=== PATIENT | female | born 1935 | race Caucasian/White ===

== ENCOUNTER → 2017-01-31 | Outpatient (CLI) | payer OTHER ==
[2013-09-10 12:26] VITALS: BP 200/117
[2017-01-31 10:55] LABS: CREATININE 0.94 mg/dL (0.55-1.02)
--- NOTE | 2017-01-31 14:12 | CT ---
HISTORY: Thoracic back pain Study: CT thoracic spine without contrast Comparison: None Technique: Axial non contrast images with coronal and sagittal reformats. Dose reduction procedures were use with MA/kv adjusted for body size. Findings: The bones are osteopenic. Mild levoscoliosis is present. The alignment is otherwise normal. The vert ebral bodies are of average height the disc spaces are preserved . The pedicles, spinous processes, and posterior elements are intact as are the visualized posterior ribs. There is no evidence for fra cture or dislocation. The joints are within normal limits. IMPRESSION: Osteopenia Mild levoscoliosis Reported By:
--- NOTE | 2017-02-01 14:18 | MRI ---
HISTORY: Thoracic spine pain and stiffness Study: MRI thoracic spine with and without contrast Comparison: 09/19/2016 Technique: Multiplanar multi-sequence MRI of the thoracic spine was obtained with standard [facility] protocol. Findings: There is increased kyphosis of the thoracic spine. No listhesis. Scattered hemangiomas are again see n throughout the mid thoracic vertebral bodies without evidence of abnormal enhancement or destructi ve soft tissue mass. Left renal cyst is suspected. The surrounding paraspinal soft tissues are othe rwise unremarkable. There is minimal endplate concavity in the upper thoracic spine that appears ch ronic in nature. No evidence of acute compression fracture. Multilevel disc desiccation is present. No spinal or foraminal stenosis identified. IMPRESSION: 1. Overall stable thoracic spine MRI with chronic degenerate findings as described. Reported By:
== END | disposition home or self-care (01) | DRG 552 ==
LOC: RAD 10:18
PROVIDERS: ATTEND Neurological Surgery
DX: M54.6 Pain in thoracic spine (principal); N28.89 Other specified disorders of kidney and ureter; M85.88 Other specified disorders of bone density and structure, other site; M41.84 Other forms of scoliosis, thoracic region
CPT/HCPCS: 36415; 72128; 72157; 82565; 84520

== ENCOUNTER → 2017-06-27 | Outpatient (CLI) | payer OTHER ==
[2013-09-10 12:26] VITALS: BP 200/117
--- NOTE | 2017-06-27 09:59 | MRI ---
MRI SPINE THORACIC WITHOUT CONTRAST CLINICAL HISTORY: 81-year-old female with chronic thoracic pain. COMPARISON: MR thoracic spine 01/31/2017. TECHNIQUE: Multiplanar, multisequence MRI images of the thoracic spine were obtained prior to and fo llowing the uneventful intravenous administration of contrast. FINDINGS: Mild exaggeration of the thoracic kyphosis as imaged. Alignment is maintained. Vertebral body and int ervertebral disc space height are normal. Stable probable hemangiomas T2, T6 and T10 with the remaini ng marrow signal unremarkable. Disc signal is preserved. Cord signal is normal. There is no evidence of significant neural foraminal stenosis or canal compromise. Stable left renal cyst. IMPRESSION: 1. Mild multilevel degenerative change without central canal or neural foraminal stenosis. 2. Stable left renal cyst. Reported By:
== END | disposition home or self-care (01) | DRG 552 ==
LOC: RAD 08:17
PROVIDERS: ATTEND Neurological Surgery
DX: M54.6 Pain in thoracic spine (principal); M48.04 Spinal stenosis, thoracic region; N28.1 Cyst of kidney, acquired
CPT/HCPCS: 72146

== ENCOUNTER 2018-11-26 18:41 | Observation (INO) ==
--- NOTE | 2018-11-26 19:06 | CT ---
CT HEAD WITHOUT CONTRAST CLINICAL HISTORY: 82-year-old female with possible stroke. COMPARISON: CT head 08/13/2018. TECHNIQUE: Multiple, non-contrasted axial CT images were obtained from the skull base to the cranial vertex. Coronal and sagittal reformats were performed. FINDINGS: There are no abnormal intra- or extra-axial fluid collections, midline shift, or mass effect. Zambrano-white differentiation is normal. Partially empty sella. Global cortical involutional changes are present that are advanced for the patient's stated age. The ventricular system is enlarged but commensurate with the degree of sulcal prominence. Chronic lacunar infarctions bilateral basal ganglia. Severe periventricular and supraventricular white matter hypodensity is present that is nonspecific in appearance, but most likely to represent microvascular ischemic changes. Atherosclerotic vascular calcification is present within the carotid siphons and distal vertebral arteries. Bilateral aphakia. The imaged paranasal sinuses, mastoid air cells, and tympanic spaces are clear. IMPRESSION: 1. No definite evidence of an acute intracranial process. If clinical concern persists for acute stroke and it would alter patient management, consider MRI/MRA brain. 2. Chronic lacunar infarctions bilateral basal ganglia. 3. Severe microvascular white matter ischemic changes, with associated volume loss. Reported By:
[2018-11-26 19:29] LABS: BILIRUBIN,URINE NEGATIVE (NEGATIVE); BLOOD/HEMOGLOBIN,URINE 2+ (NEGATIVE); GLUCOSE, URINE NEGATIVE (NEGATIVE); KETONES,URINE 1+ (NEGATIVE); LEUKOCYTE ESTERASE ,URINE 1+ (NEGATIVE); NITRITES,URINE NEGATIVE (NEGATIVE); PROTEIN,URINE 2+ (NEGATIVE); UROBILINOGEN,URINE NORMAL (NORMAL)
[2018-11-26 19:50] LABS: APPEARANCE,URINE HAZY (CLEAR); COLOR,URINE YELLOW (YELLOW)
[2018-11-26 19:52] LABS: AMORPHOUS SEDIMENT,UR 1+ /HPF (NEGATIVE); BACTERIA,URINE TRACE /HPF (NEGATIVE); SQUAMOUS EPITHELIAL CELL,UR RARE /HPF (NEGATIVE)
[2018-11-26 20:19] LABS: BASOPHILS % (AUTO) 0.4 % (0.2-1.0); EOSINOPHILS # (AUTO) 0.1 x10^3/uL (0.0-0.2); EOSINOPHILS % (AUTO) 0.9 % (0.9-2.9); HEMATOCRIT 38.4 % (36.0-47.0); HEMOGLOBIN 12.6 g/dL (12.0-16.0); LYMPHOCYTES # (AUTO) 1.5 X10^3/uL (1.3-2.9); LYMPHOCYTES % (AUTO) 16.1 % (21.0-51.0); MEAN CORPUSCULAR HGB CONC 32.8 g/dL (33.0-35.0); MEAN CORPUSCULAR VOLUME 85.5 fL (80.0-100.0); MEAN PLATELET VOLUME 7.7 fL (7.4-11.0); MONOCYTES # (AUTO) 0.7 x10^3/uL (0.3-0.8); MONOCYTES % (AUTO) 7.3 % (0.0-13.0); NEUTROPHILS # (AUTO) 6.9 x10^3/uL (2.2-4.8); NEUTROPHILS % (AUTO) 75.3 % (42.0-75.0); PLATELET COUNT 245 X10^3/uL (150.0-450.0); RED BLOOD COUNT 4.49 X10^6/uL (3.5-5.4); RED CELL DISTRIBUTION WIDTH 13.9 % (11.6-16.5); WHITE BLOOD COUNT 9.2 X10^3/uL (3.6-10.0)
[2018-11-26 20:34] LABS: BLOOD UREA NITROGEN 21 mg/dL (7-18); CARBON DIOXIDE 31.7 mmol/L (21-32); CHLORIDE 101 mmol/L (98-107); COR NA(FOR HYPERGLY) 139 mmol/L (136-145); CREATININE 0.97 mg/dL (0.55-1.02); SODIUM 138 mmol/L (136-145); TROPONIN I < 0.02 ng/mL (0-1.5); eGFR NON BLACK RACES 58 (>60)
[2018-11-26 20:37] LABS: LACTIC ACID 0.5 mmol/L (0.4-2.0)
[2018-11-26 20:39] LABS: ALANINE AMINOTRANSFERASE 18 Units/L (12-78); ALBUMIN 3.5 g/dL (3.4-5.0); ALKALINE PHOSPHATASE 68 Units/L (46-116); ASPARTATE AMINO TRANSFERASE 16 Units/L (15-37); CKMB % 2.5 % (<4); CREATINE KINASE 40 Units/L (26-192); CREATINE KINASE MB < 1.0 ng/mL (0-4.0); TOTAL PROTEIN 6.9 g/dL (6.4-8.2)
--- NOTE | 2018-11-27 00:08 | DR.WEAKNES ---
HPI Time Seen Time Seen by Provider: 11/26/18 19:48 Primary Care Physician Primary Care Physician: denisa Complaints Chief Complaint:: pt was found unresponsive by her daughter. upon ems's arrival pt was unresponsive except for painful stimuli pupils unequal pt has hx of falling multiple times over the last few weeks. ems started using the ambu bag beause pt's % in the low 50's.unknown when patient last seen normal. Source History Provided: EMS Mode of Arrival Mode of Arrival: EMS Timing Onset of Chief Complaint: 11/26/18 PMH PMH Past Medical History: Yes Past Medical History: Hypertension and Hypothyroidism Past Medical History Comment: legally blind Past Surgical History: Yes Surgical History: Hysterectomy Family History History of Family Medical Conditions: No Family Medical History: Cancer, Heart Failure and Hypertension Social History Does patient currently use any type of tobacco product: No Have you used tobacco products in the last 12 months: No Does any household member use tobacco: No Alcohol Use: None Do you use any recreational Drugs:: No Lives With: Family Lives Where: Home infectious screening In the last 2 months have you had wt loss of >10#?: NO Have you had fever, night sweats or hemotysis?: No Have you traveled outside the country in the last 6 months?: No Isolation: Standard PE Vital Signs Vitals: Temperature 98.4 F Pulse Rate 95 Respiratory Rate 18 Blood Pressure [Right Arm] 118/58 Blood Pressure 147/65 O2 Sat by Pulse Oximetry 98 ROR Labs Reviewed Result Diagrams: 11/26/18 20:06 11/26/18 20:06 Laboratory: WBC 9.2 X10^3/uL (3.6-10.0) 11/26/18 20:06 RBC 4.49 X10^6/uL (3.5-5.4) 11/26/18 20:06 Hgb 12.6 g/dL (12.0-16.0) 11/26/18 20:06 Hct 38.4 % (36.0-47.0) 11/26/18 20:06 MCV 85.5 fL (80.0-100.0) 11/26/18 20:06 MCH 28.0 pg (27.0-34.0) 11/26/18 20:06 MCHC 32.8 g/dL (33.0-35.0) L 11/26/18 20:06 RDW 13.9 % (11.6-16.5) 11/26/18 20:06 Plt Count 245 X10^3/uL (150.0-450.0) 11/26/18 20:06 MPV 7.7 fL (7.4-11.0) 11/26/18 20:06 Neut % (Auto) 75.3 % (42.0-75.0) H 11/26/18 20:06 Lymph % (Auto) 16.1 % (21.0-51.0) L 11/26/18 20:06 [place] % (Auto) 7.3 % (0.0-13.0) 11/26/18 20:06 Eos % (Auto) 0.9 % (0.9-2.9) 11/26/18 20:06 Baso % (Auto) 0.4 % (0.2-1.0) 11/26/18 20:06 Neut # (Auto) 6.9 x10^3/uL (2.2-4.8) H 11/26/18 20:06 Lymph # (Auto) 1.5 X10^3/uL (1.3-2.9) 11/26/18 20:06 [place] # (Auto) 0.7 x10^3/uL (0.3-0.8) 11/26/18 20:06 Eos # (Auto) 0.1 x10^3/uL (0.0-0.2) 11/26/18 20:06 Baso # (Auto) 0.0 X10^3/uL (0.0-0.1) 11/26/18 20:06 Absolute Nucleated RBC 0.1 /100WBC 11/26/18 20:06 Sodium 138 mmol/L (136-145) 11/26/18 20:06 Corrected Sodium 139 mmol/L (136-145) 11/26/18 20:06 Potassium 3.7 mmol/L (3.5-5.1) 11/26/18 20:06 Chloride 101 mmol/L (98-107) 11/26/18 20:06 Carbon Dioxide 31.7 mmol/L (21-32) 11/26/18 20:06 BUN 21 mg/dL (7-18) H 11/26/18 20:06 Creatinine 0.97 mg/dL (0.55-1.02) 11/26/18 20:06 Est GFR (MDRD) Af Amer > 60 (>60) 11/26/18 20:06 Est GFR (MDRD) Non-Af 58 (>60) L 11/26/18 20:06 Glucose 135 mg/dL (65-99) H 11/26/18 20:06 Lactic Acid 0.5 mmol/L (0.4-2.0) 11/26/18 20:06 Calcium 9.0 mg/dL (8.5-10.1) 11/26/18 20:06 Corrected Calcium TNP 11/26/18 20:06 Total Bilirubin 0.30 mg/dL (0.2-1.0) 11/26/18 20:06 AST 16 Units/L (15-37) 11/26/18 20:06 ALT 18 Units/L (12-78) 11/26/18 20:06 Alkaline Phosphatase 68 Units/L (46-116) 11/26/18 20:06 Creatine Kinase 40 Units/L (26-192) 11/26/18 20:06 CK-MB (CK-2) < 1.0 ng/mL (0-4.0) 11/26/18 20:06 CK/CKMB % Calc 2.5 % (<4) 11/26/18 20:06 Troponin I < 0.02 ng/mL (0-1.5) 11/26/18 20:06 C-Reactive Protein 2.20 mg/L (0-3.0) 11/26/18 20:06 Total Protein 6.9 g/dL (6.4-8.2) 11/26/18 20:06 Albumin 3.5 g/dL (3.4-5.0) 11/26/18 20:06 Globulin 3.4 g/dL (2.5-4.5) 11/26/18 20:06 Albumin/Globulin Ratio 1.0 Ratio (1.1-2.1) L 11/26/18 20:06 Specimen Type Catherized urine 11/26/18 19:19 Urine Color Yellow (YELLOW) 11/26/18 19:19 Urine Appearance Hazy (CLEAR) 11/26/18 19: Urine pH 5.0 (5.0 - 8.0) 11/26/18 19:19 Ur Specific [place] 1.025 (1.000-1.030) 11/26/18 19:19 Urine Protein 2+ (NEGATIVE) 11/26/18 19:19 Urine Glucose (UA) Negative (NEGATIVE) 11/26/18 19:19 Urine Ketones 1+ (NEGATIVE) 11/26/18 19:19 Urine Occult Blood 2+ (NEGATIVE) 11/26/18 19:19 Urine Nitrite Negative (NEGATIVE) 11/26/18 19:19 Urine Bilirubin Negative (NEGATIVE) 11/26/18 19:19 Urine Urobilinogen Normal (NORMAL) 11/26/18 19:19 Ur Leukocyte Esterase 1+ (NEGATIVE) 11/26/18 19:19 Urine RBC 3-5 /HPF (NONE SEEN) 11/26/18 19:19 Urine WBC 0-2 /HPF (NONE SEEN) 11/26/18 19:19 Ur Squamous Epith Cells Rare /HPF (NEGATIVE) 11/26/18 19:19 Amorphous Sediment 1+ /HPF (NEGATIVE) 11/26/18 19:19 Urine Bacteria Trace /HPF (NEGATIVE) 11/26/18 19:19 Ur Culture Indicated? No/not indicated 11/26/18 19:19
[2018-11-27 01:50] VITALS: BMI 23.8
[2018-11-27 05:26] LABS: BASOPHILS # (AUTO) 0.1 X10^3/uL (0.0-0.1); BASOPHILS % (AUTO) 1.2 % (0.2-1.0); EOSINOPHILS # (AUTO) 0.1 x10^3/uL (0.0-0.2); HEMATOCRIT 35.5 % (36.0-47.0); HEMOGLOBIN 11.7 g/dL (12.0-16.0); LYMPHOCYTES # (AUTO) 2.1 X10^3/uL (1.3-2.9); LYMPHOCYTES % (AUTO) 24.6 % (21.0-51.0); MEAN CORPUSCULAR HEMOGLOBIN 28.2 pg (27.0-34.0); MEAN CORPUSCULAR VOLUME 85.6 fL (80.0-100.0); MEAN PLATELET VOLUME 7.8 fL (7.4-11.0); MONOCYTES # (AUTO) 0.7 x10^3/uL (0.3-0.8); MONOCYTES % (AUTO) 8.7 % (0.0-13.0); NEUTROPHILS # (AUTO) 5.5 x10^3/uL (2.2-4.8); NEUTROPHILS % (AUTO) 64.5 % (42.0-75.0); PLATELET COUNT 226 X10^3/uL (150.0-450.0); RED BLOOD COUNT 4.15 X10^6/uL (3.5-5.4); RED CELL DISTRIBUTION WIDTH 13.8 % (11.6-16.5); WHITE BLOOD COUNT 8.6 X10^3/uL (3.6-10.0)
[2018-11-27 05:48] LABS: ALANINE AMINOTRANSFERASE 17 Units/L (12-78); ALBUMIN 2.9 g/dL (3.4-5.0); ALKALINE PHOSPHATASE 59 Units/L (46-116); ASPARTATE AMINO TRANSFERASE 15 Units/L (15-37); BLOOD UREA NITROGEN 17 mg/dL (7-18); CALCIUM 8.7 mg/dL (8.5-10.1); CARBON DIOXIDE 31.2 mmol/L (21-32); CHLORIDE 103 mmol/L (98-107); COR CA(FOR HYPOALB) 9.6 mg/dL (8.5-10.1); CREATININE 0.68 mg/dL (0.55-1.02); MAGNESIUM 1.7 mg/dL (1.7-2.9); SODIUM 140 mmol/L (136-145); TOTAL PROTEIN 5.9 g/dL (6.4-8.2); eGFR NON BLACK RACES > 60 (>60)
[2018-11-27 05:55] LABS: CKMB % 3.2 % (<4); CREATINE KINASE 31 Units/L (26-192); CREATINE KINASE MB < 1.0 ng/mL (0-4.0); TROPONIN I < 0.02 ng/mL (0-1.5)
[2018-11-27 11:20] LABS: CKMB % 3.2 % (<4); CREATINE KINASE 31 Units/L (26-192); CREATINE KINASE MB < 1.0 ng/mL (0-4.0); TROPONIN I < 0.02 ng/mL (0-1.5)
--- NOTE | 2018-11-27 12:32 | MRI ---
MRA HEAD WITHOUT CONTRAST CLINICAL HISTORY: 82-year-old female with syncope and weakness complaining of blackouts. COMPARISONS: CT head 11/26/2018. TECHNIQUE: 3-D time of flight magnetic resonance angiographic images of the [place] were obtained and presented as maximum intensity projection images in rotating format. FINDINGS: Right dominant vertebral artery. Bilateral PICA are present. The basilar artery is normal in appearance and gives off normal bilateral superior cerebellar and posterior cerebral arteries. Luminal irregularity of flow related enhancement within the cavernous segments of the ICA bilaterally consistent with significant atherosclerotic plaque noted on CT head 11/26/2018. The internal carotid arteries are otherwise normal from the distal cervical segments to the carotid terminus. Posterior communicating arteries are not visualized. The middle and anterior cerebral arteries are normal in course and caliber. There is a small caliber anterior communicating artery. IMPRESSION: 1. Luminal irregularity of flow related enhancement within the cavernous segments of the ICA bilaterally consistent with significant atherosclerotic plaque noted on CT head 11/26/2018, of unlikely clinical/hemodynamic significance. If clinical concern persists consider neuro interventional evaluation with conventional angiography versus CTA head. 2. No other region of aneurysm, high-grade stenosis, complete occlusion, dissection or vascular malformation. Reported By:
--- NOTE | 2018-11-27 12:39 | MRI ---
MRI BRAIN WITHOUT AND WITH CONTRAST CLINICAL HISTORY: 82-year-old female with syncope and weakness complains of blackouts. COMPARISON: CT head 11/26/2018. TECHNIQUE: Multiplanar, multisequence MR images of the brain were obtained prior to and following the uneventful intravenous administration of 12 mL MultiHance. FINDINGS: There is no evidence of diffusion restriction. The craniocervical junction is normal. Pituitary and optic nerve complex are normal. Severe confluent and multifocal punctate T2 FLAIR signal hyperintensities are present within the subcortical, juxtacortical, periventricular and supraventricular white matter that are nonspecific in appearance but most likely to represent microvascular white matter ischemic changes. Normal signal characteristics and morphology are demonstrated within the cerebral cortex, corpus callosum, deep loving nuclei, brainstem and cerebellum. The major vascular channels opacify normally and the major vascular flow voids, to include the dural venous sinuses, are intact. No abnormal susceptibility on gradient imaging. Age advanced cortical volume loss is present, with commensurate sulcal and ventricular prominence. The basilar cisterns are normal. There is no evidence of abnormal intracranial enhancement. Bilateral aphakia. The orbits and globes are otherwise within normal limits. The paranasal sinuses, tympanic cavities and mastoids are clear. IMPRESSION: 1. No acute ischemic or hemorrhagic insult. 2. No abnormal intracranial enhancement. 3. Severe, chronic microvascular white matter ischemic disease with associated volume loss. Reported By:
--- NOTE | 2018-11-27 17:19 | VAS ---
HISTORY: Concern for carotid artery stenosis. Syncope. Technique: Multiple loving scale and color flow Doppler images of the right and left carotid arterial system were obtained. The vertebral arterial system was evaluated as well. Findings: Nonocclusive color flow Doppler is seen throughout the right and left carotid arterial system. No hemodynamically significant carotid arterial stenosis is seen based on velocity criteria. There is exhh-og-[id number] atherosclerosis and plaque formation of the bilateral carotid bulbs and ICAs with associated intimal thickening but without evidence for high-grade stenosis (>70%) or occlusion of the carotid arteries. The right and left vertebral artery demonstrate antegrade flow. IMPRESSION: Irqa-kc-nrxflnnn atherosclerosis and plaque formation of the bilateral carotid bulbs and in both ICAs with associated carotid intimal thickening but without evidence for high-grade stenosis or occlusion of the carotid arteries, based on Doppler velocity criteria. Appropriate, antegrade, vertebral arterial flow. Peak right ICA velocity: 107 centimeter/seconds. Peak right CCA velocity: 85 centimeter/seconds. Peak left ICA velocity: 109 centimeter/seconds. Peak left CCA velocity: 82 centimeter/seconds. Right ICA to CCA ratio: 1.3. Left ICA to CCA ratio: 1.3. Reported By:
[2018-11-27] MEDS ORDERED: XANAX PO PRN (19:16)
[2018-11-27] MEDS ORDERED: VALIUM PO PRN (19:16)
[2018-11-27] MEDS ORDERED: ZANAFLEX PO PRN (19:16)
--- NOTE | 2018-11-27 19:16 | DR.H&P ---
H&P - History & Physical for Day of: H&P Date: 11/27/18 ( ) - Chief Complaint Chief Complaint: SYNCOPE - History of Present Illness History of Present Illness: IS A 82 YEAR OLD PATIENT OF OURS. SHE REPORTED TO THE ER VIA EMS AFTER A SYNCOPAL EPISODE. PATIENTS DAUGHTER REPORTS THAT SHE FOUND HER LYING ON THE GROUND UNRESPONSIVE. EMS REPORTS THAT SHE WAS ONLY RESPONSIVE TO PAINFUL STIMULI. THEY REPORT THAT HER OXYGEN SATURATIONS FELL TO THE LOW 50S. ON ARRIVAL, SHE IS NOTED WITH UNEQUAL PUPILS AND WEAKNESS. ON ARRIVAL, VITALS WERE 98.2-95-16-95%-147/65. LABS WERE OBTAINED. ABNORMAL LAB VALUES INCLUDE THE FOLLOWING: BUN 21, GLUCOSE 135. CARDIAC ENZYMES WITHIN NORMAL LIMITS. URINALYSIS REVEALED: WBC 0-2, RBC 3-5, BACTERIA TRACE, LEUKOCYTES 1+. BLOOD CULTURES OBTAINED. A BRAIN CT WAS OBTAINED AND REVEALED: No definite evidence of an acute intracranial process. If clinical concern persists for acute stroke and it would alter patient management, consider MRI/MRA brain. Chronic lacunar infarctions bilateral basal ganglia. Severe microvascular white matter ischemic changes, with associated volume loss. EKG REVEALED: SINUS RHYTHM WITH HR 62. SHE WAS ADMITTED FOR FURTHER EVALUATION AND TREATMENT OF AMS, TIA, AND SYNCOPAL EPISODE. WE PLAN TO OBTAIN A BRAIN MRI/MRA WITH CONTRAST, A CAROTID DOPPLER, AND AN ECHO. OTHERWISE, WE WILL FOLLOW UP WITH AM LABS AND CONTINUE TO MONITOR. - Past Medical History Past Medical History: Hypertension, Hypothyroidism - Past Surgical History Surgical History: Hysterectomy - Family History Family Medical History: Hypertension - Social History Does patient currently use any type of tobacco product: No Have you used tobacco products in the last 12 months: No Type of Tobacco Use: None Does any household member use tobacco: No Alcohol Use: None Drug Use: None - Medications Home Medications: promethazine [From Phenergan] Allergy (Verified 11/26/18 21:21) CONTINUE taking the following medications alprazolam 1 mg PO BID PRN 11/27/18 [History] aspirin 81 mg PO QDAY 11/27/18 [History] baclofen 10 mg PO TID 11/27/18 [History] diazepam 5 - 10 mg PO QHS PRN 11/27/18 [History] fluticasone propionate 1 inh INTRANASAL BID 11/27/18 [History] levothyroxine [Synthroid] 137 mcg PO QDAY 11/27/18 [History] montelukast 10 mg PO DAILY 11/27/18 [History] omeprazole 40 mg PO BID 11/27/18 [History] oxycodone 20 mg PO QID PRN 11/27/18 [History] tizanidine 4 mg PO BID PRN 11/27/18 [History] trazodone 50 mg PO HS 11/27/18 [History] - Review of Systems Constitutional: See HPI, Weakness Eyes: No Symptoms Reported ENT: No Symptoms Reported Respiratory: No Symptoms Reported Cardiovascular: No Symptoms Reported Gastrointestinal: No Symptoms Reported Genitourinary: No Symptoms Reported Musculoskeletal: No Symptoms Reported Skin: No Symptoms Reported Neurological: See HPI, Weakness, Confusion - Physical Exam Vital Signs: Temperature 98.2 F Pulse Rate [Left Radial] 76 Pulse Rate 95 Respiratory Rate 20 Blood Pressure [Right Arm] 132/63 Blood Pressure 147/65 O2 Sat by Pulse Oximetry 93 Oriented: Person Eyes: Normal Ear: Normal Nose: Normal Throat: Normal Respiratory: Diminished Throughout Cardiovascular: Normal : Normal Auscultation: Bowel Sounds: Normal Palpation: Normal Tenderness: Normal Skin: Normal Musculoskeletal: Normal Psychiatric: Normal Mood Description: Calm Affect: Normal Speech Pattern: Clear - Assessment/Plan (1) TIA (transient ischemic attack) Status: Acute Plan: OBTAIN BRAIN MRI/MRI, CAROTID DOPPLER, AND ECHO, CONTINUE TO MONITOR (2) Altered mental status Qualifiers: Altered mental status type: transient alteration of awareness Qualified Code(s): R40.4 - Transient alteration of awareness Status: Acute (3) Syncope Qualifiers: Syncope type: unspecified Qualified Code(s): R55 - Syncope and collapse Status: Acute - Allergies Allergies/Adverse Reactions: Allergies Allergy/AdvReac Type Severity Reaction Status Date / Time promethazine [From Phenergan] Allergy Verified 11/26/18 21:21
[2018-11-27] MEDS ORDERED: ROXICODONE TAB 5 MG PO PRN (20:03)
[2018-11-27] MEDS ORDERED: DESYREL PO SCH (21:00)
[2018-11-27] MEDS: FLONASE NASAL SPRAY ENOSTRIL SCH (21:14)
[2018-11-27] MEDS: ASPIRIN EC 81 MG PO SCH (21:14)
[2018-11-27] MEDS: SINGULAIR TAB 10 MG PO SCH (21:15)
[2018-11-27] MEDS: LIORESAL PO SCH (21:15)
[2018-11-27] MEDS: PriLOSEC PO SCH (21:15)
[2018-11-27] MEDS: SYNTHROID 137 mcg TAB PO SCH (21:15)
[2018-11-28] MEDS: LIORESAL PO SCH (05:53)
[2018-11-28] MEDS: SYNTHROID 137 mcg TAB PO SCH (06:12)
[2018-11-28 06:27] LABS: BASOPHILS # (AUTO) 0.1 X10^3/uL (0.0-0.1); BASOPHILS % (AUTO) 0.5 % (0.2-1.0); EOSINOPHILS # (AUTO) 0.1 x10^3/uL (0.0-0.2); EOSINOPHILS % (AUTO) 1.2 % (0.9-2.9); HEMATOCRIT 38.9 % (36.0-47.0); HEMOGLOBIN 12.8 g/dL (12.0-16.0); LYMPHOCYTES # (AUTO) 1.8 X10^3/uL (1.3-2.9); LYMPHOCYTES % (AUTO) 16.5 % (21.0-51.0); MEAN CORPUSCULAR HGB CONC 32.9 g/dL (33.0-35.0); MEAN CORPUSCULAR VOLUME 85.2 fL (80.0-100.0); MEAN PLATELET VOLUME 8.3 fL (7.4-11.0); MONOCYTES # (AUTO) 0.9 x10^3/uL (0.3-0.8); MONOCYTES % (AUTO) 8.3 % (0.0-13.0); NEUTROPHILS # (AUTO) 8.1 x10^3/uL (2.2-4.8); NEUTROPHILS % (AUTO) 73.5 % (42.0-75.0); PLATELET COUNT 229 X10^3/uL (150.0-450.0); RED BLOOD COUNT 4.56 X10^6/uL (3.5-5.4); RED CELL DISTRIBUTION WIDTH 13.5 % (11.6-16.5); WHITE BLOOD COUNT 11.1 X10^3/uL (3.6-10.0)
[2018-11-28 06:35] LABS: ALANINE AMINOTRANSFERASE 14 Units/L (12-78); ALBUMIN 3.1 g/dL (3.4-5.0); ALKALINE PHOSPHATASE 66 Units/L (46-116); ASPARTATE AMINO TRANSFERASE 13 Units/L (15-37); BLOOD UREA NITROGEN 14 mg/dL (7-18); CARBON DIOXIDE 33.1 mmol/L (21-32); CHLORIDE 102 mmol/L (98-107); COR CA(FOR HYPOALB) 9.7 mg/dL (8.5-10.1); CREATININE 0.68 mg/dL (0.55-1.02); SODIUM 141 mmol/L (136-145); TOTAL PROTEIN 6.3 g/dL (6.4-8.2); eGFR NON BLACK RACES > 60 (>60)
[2018-11-28] MEDS: ASPIRIN EC 81 MG PO SCH (08:28)
[2018-11-28] MEDS: SINGULAIR TAB 10 MG PO SCH (08:28)
[2018-11-28] MEDS: PriLOSEC PO SCH (08:28)
[2018-11-28] MEDS: FLONASE NASAL SPRAY ENOSTRIL SCH (08:28)
[2018-11-28 12:49] VITALS: BP 121/64
== END 2018-11-28 12:40 | disposition home health service (06) ==
LOC: ER 18:48 → OBS 18:48 → MED/SURG 11-27 13:35
PROVIDERS: ADMIT Internal Medicine; ATTEND Internal Medicine
DX: R40.4 Transient alteration of awareness; G45.8 Other transient cerebral ischemic attacks and related syndromes; Z79.899 Other long term (current) drug therapy; R73.09 Other abnormal glucose; R55 Syncope and collapse; R94.31 Abnormal electrocardiogram [ECG] [EKG]
CPT/HCPCS: 36415; 51702; 70450; 70544; 70553; 80053; 81001; 82550; 82553; 83605; 83735; 84484; 85025; 86140; 87040; 93005; 93306; 93880; 94760; 96365; 99284; G0378

== ENCOUNTER 2021-01-12 08:29 | Inpatient (IN) ==
--- NOTE | 2021-01-12 08:47 | DR.GENAD ---
HPI Time Seen Time Seen by Provider: 01/12/21 08:37 HPI Comment HPI Comment: PATIENT WITH A HISTORY OF COPD, TREATED FOR ACUTE BRONCHITIS 2 WEEKS AGO, TOOK ONLY HALF COURSE OF ANTIBIOTICS, NOW HAS PERSISTENT DYSPNEA, COUGH, FOUND THIS AM WITH LOW PULSE OXIMETRY 76%. DENIES FEVER, CHILLS AND CHEST PAIN. HAS OF LONGSTANDING SMOKER IN THE PAST. Complaint/Symptoms Chief Complaint Doctors Comments: COUGH DYSPNEA, CONFUSION COVID-19 Has patient experienced Coronavirus symptoms: No Nurses notes reviewed Nurses Notes Review: Yes Source History Provided: Patient and Family Member Mode of Arrival Mode of Arrival: EMS Timing Onset of Chief Complaint: 12/29/20 Came on: Gradually Duration Duration: Constant Severity Severity: Moderate Associated Signs and Symptoms Associated Signs and Symptoms: DYSPNEA PMH PMH Past Medical History: COPD and Hypothyroidism Past Surgical History: Yes Surgical History: Hysterectomy Family History Family Medical History: Hypertension Social History Do you use any recreational Drugs:: No ROS Review of Systems Constitutional: See HPI and Weakness Eyes: No Symptoms Reported ENTM: No Symptoms Reported Respiratoy: Non-Productive Cough and Short of Breath Cardiovascular: No Symptoms Reported Gastrointestinal/Abdominal: No Symptoms Reported Genitourinary: No Symptoms Reported Neurological: No Symptoms Reported Musculoskeletal: No Symptoms Reported Integumentary: No Symptoms Reported Hematologic/Lymphatic: No Symptoms Reported Endocrine: No Symptoms Reported Psychiatric: No Symptoms Reported All Other Systems: Reviewed and Negative PE Vital Signs Vitals: Temperature 97.6 F Pulse Rate [Left] 105 Pulse Rate 102 Respiratory Rate 18 Blood Pressure [Right Arm] 147/80 Blood Pressure 147/80 O2 Sat by Pulse Oximetry 100 General Limitations: No Limitations General Appearance: Alert and In No Apparent Distress Head Head Exam: Normal Inspection Eyes Eye exam: Normal Appearance ENT ENT Exam: Normal Exam External Ear Exam: Normal External Inspection TM/Canal Exam: Bilateral: Normal Nose Exam: Normal Nose Exam Mouth Exam: Normal Inspection Throat Exam: Normal Inspection Neck Neck Exam: Normal Inspection Chest Chest Inspection: Normal Inspection Respiratory Respiratory Exam: Bilateral: Clear to Auscultation and Bilateral: Decreased Breath Sounds and Lower: Decreased Breath Sounds Cardiovascular Cardiovascular Exam: Regular Rate and Normal Rhythm Abdominal Exam Abdominal Exam: Normal Inspection, Normal Bowel Sounds and Soft Extremities Extremities Exam: Normal Inspection Back Back Exam: Normal Inspection Neurologic Neurological Exam: Alert and Oriented X3 Psychiatric Psychiatric Exam: Normal Affect and Normal Mood Skin Skin Exam: Warm, Dry, Intact and Normal Color MDM Differential Diagnosis Differential Diagnosis: PNEUMONIA, EXACERBATION COPD, PULMONARY EMBOLISM COURSE Treatment Treatment: IV NORMAL SALINE 100ML/HR, AFTER 2 SETS OF BLOOD CULTURES ROCEPHIN 1GM IVPB, SOLUMEDROL 125MG IV Consultation Call Returned: 12:38 Consultation Comments: DISCUSSED FINDINGS WITH DR MCQUEEN AT 1238 FOR INPATIENT ADMIT ROR Labs Reviewed Laboratory Results Reviewed?: Yes Result Diagrams: 01/12/21 08:52 01/12/21 08:52 Laboratory: WBC 7.8 X10^3/uL (3.6-10.0) 01/12/21 08:52 RBC 4.84 X10^6/uL (3.5-5.4) 01/12/21 08:52 Hgb 13.0 g/dL (12.0-16.0) 01/12/21 08:52 Hct 40.9 % (36.0-47.0) 01/12/21 08:52 MCV 84.6 fL (80.0-100.0) 01/12/21 08:52 MCH 27.0 pg (27.0-34.0) 01/12/21 08:52 MCHC 31.9 g/dL (33.0-35.0) L 01/12/21 08:52 RDW 13.6 % (11.6-16.5) 01/12/21 08:52 Plt Count 210 X10^3/uL (150.0-450.0) 01/12/21 08:52 MPV 7.5 fL (7.4-11.0) 01/12/21 08:52 Neut % (Auto) 38.1 % (42.0-75.0) L 01/12/21 08:52 Lymph % (Auto) 35.7 % (21.0-51.0) 01/12/21 08:52 [place] % (Auto) 13.8 % (0.0-13.0) H 01/12/21 08:52 Eos % (Auto) 12.1 % (0.9-2.9) H 01/12/21 08:52 Baso % (Auto) 0.3 % (0.2-1.0) 01/12/21 08:52 Neut # (Auto) 3.0 x10^3/uL (2.2-4.8) 01/12/21 08:52 Lymph # (Auto) 2.8 X10^3/uL (1.3-2.9) 01/12/21 08:52 [place] # (Auto) 1.1 x10^3/uL (0.3-0.8) H 01/12/21 08:52 Eos # (Auto) 0.9 x10^3/uL (0.0-0.2) H 01/12/21 08:52 Baso # (Auto) 0.0 X10^3/uL (0.0-0.1) 01/12/21 08:52 Absolute Nucleated RBC 0.0 /100WBC 01/12/21 08:52 D-Dimer 0.79 ug/ml (0.0-0.57) H* 01/12/21 08:52 Sample Site R brachial 01/12/21 09:25 ABG pH 7.310 (7.35-7.45) L 01/12/21 09:25 ABG pCO2 65.0 mmHg (35.0-45.0) H* 01/12/21 09:25 ABG pO2 80.0 mmHg (80.0-100.0) 01/12/21 09:25 ABG HCO3 32.7 mmol/L (22-26) H* 01/12/21 09:25 ABG O2 Saturation 95.0 % (90-100) 01/12/21 09:25 ABG Base Excess 4.6 mmol/L (-2.0-2.0) H 01/12/21 09:25 Michael Test Na 01/12/21 09:25 A-a Gradient 38.0 mmHg 01/12/21 09:25 FiO2 28.0 01/12/21 09:25 Blood Gas Comments Delmis well, kh 01/12/21 09:25 Sodium 141 mmol/L (136-145) 01/12/21 08:52 Corrected Sodium TNP 01/12/21 08:52 Potassium 3.4 mmol/L (3.5-5.1) L 01/12/21 08:52 Chloride 103 mmol/L (98-107) 01/12/21 08:52 Carbon Dioxide 33.0 mmol/L (21-32) H 01/12/21 08:52 BUN 13 mg/dL (7-18) 01/12/21 08:52 Creatinine 0.82 mg/dL (0.55-1.02) 01/12/21 08:52 Est GFR (MDRD) Af Amer > 60 (>60) 01/12/21 08:52 Est GFR (MDRD) Non-Af > 60 (>60) 01/12/21 08:52 Glucose 109 mg/dL (65-99) H 01/12/21 08:52 Calcium 8.4 mg/dL (8.5-10.1) L 01/12/21 08:52 Corrected Calcium 9.0 mg/dL (8.5-10.1) 01/12/21 08:52 Magnesium 1.9 mg/dL (1.7-2.9) 01/12/21 08:52 Total Bilirubin 0.30 mg/dL (0.2-1.0) 01/12/21 08:52 AST 16 Units/L (15-37) 01/12/21 08:52 ALT 12 Units/L (12-78) 01/12/21 08:52 Alkaline Phosphatase 80 Units/L (46-116) 01/12/21 08:52 Troponin I < 0.02 ng/mL (0-1.5) 01/12/21 08:52 B-Natriuretic Peptide 40.4 pg/mL (0-79) 01/12/21 08:52 Total Protein 6.9 g/dL (6.4-8.2) 01/12/21 08:52 Albumin 3.3 g/dL (3.4-5.0) L 01/12/21 08:52 Globulin 3.6 g/dL (2.5-4.5) 01/12/21 08:52 Albumin/Globulin Ratio 0.9 Ratio (1.1-2.1) L 01/12/21 08:52 SARS-CoV-2 (PCR) Cancelled 01/12/21 09:46 Influenza Type A (PCR) Cancelled 01/12/21 09:46 Influenza Type B (PCR) Cancelled 01/12/21 09:46 RSV (PCR) Cancelled 01/12/21 09:46 SARS CoV-2 RNA Rapid NINOSKA Negative (NEGATIVE) 01/12/21 09:44 XRAY XRAY Interpreted by: Radiologist (CHEST XRAY- NO ACUTE PROCESS, CTA OF CHEST CONSISTENT WITH NO EVIDENCE OF PULMONARY EMBOLISM, NO INFILTRATES, THERE IS CENTRILOBULAR EMPHYSEMA) EKG Rate: 90 Block: None Hypertrophy: None ST: Normal and Nonsp (ANTERIOR LATERALLY) Opioid Opioid Risk Tool Age (Anup box if 16-45): No History of Preadolescent Sexual Abuse: No Total: 0 Total Score Risk Category: Low Risk Copyright: Alexx CASTILLO predicting aberrant behaviors Diagnosis Discharge Problem: Acute exacerbation of chronic obstructive pulmonary disease (COPD)
[2021-01-12] MEDS ORDERED: NS 1000 ML 1,000 ML IV STA ×2 (08:48→12:54)
[2021-01-12] MEDS ORDERED: ROCEPHIN 1 GRAM IV PREMIX 1 G/50 ML IV.SOLN. IV ONE ×2 (08:52→09:34)
[2021-01-12 09:22] LABS: BASOPHILS % (AUTO) 0.3 % (0.2-1.0); EOSINOPHILS # (AUTO) 0.9 x10^3/uL (0.0-0.2); EOSINOPHILS % (AUTO) 12.1 % (0.9-2.9); HEMATOCRIT 40.9 % (36.0-47.0); LYMPHOCYTES # (AUTO) 2.8 X10^3/uL (1.3-2.9); LYMPHOCYTES % (AUTO) 35.7 % (21.0-51.0); MEAN CORPUSCULAR HGB CONC 31.9 g/dL (33.0-35.0); MEAN CORPUSCULAR VOLUME 84.6 fL (80.0-100.0); MEAN PLATELET VOLUME 7.5 fL (7.4-11.0); MONOCYTES # (AUTO) 1.1 x10^3/uL (0.3-0.8); MONOCYTES % (AUTO) 13.8 % (0.0-13.0); NEUTROPHILS % (AUTO) 38.1 % (42.0-75.0); PLATELET COUNT 210 X10^3/uL (150.0-450.0); RED BLOOD COUNT 4.84 X10^6/uL (3.5-5.4); RED CELL DISTRIBUTION WIDTH 13.6 % (11.6-16.5); WHITE BLOOD COUNT 7.8 X10^3/uL (3.6-10.0)
--- NOTE | 2021-01-12 09:28 | RAD ---
HISTORYLOW OXYGENSTUDYCHEST, 1 VIEWCOMPARISONNoneFINDINGSThe trachea is deviated to the right, there is uncoiling of the aortic arch. There is mild cardiomegaly. There is no pleural effusions or pneumothorax. There is emphysema in the upper lobes. No dominant alveolar infiltrates. There is a pericardial right fat pat. There is S shaped scoliosis with upper thoracic right convexity.IMPRESSIONEmphysema. Mild cardiomegaly. No acute changes.Electronically signed by: Yoly Ochoa (January 12, 2021 09:25:45)
[2021-01-12 09:34] LABS: ABG BASE EXCESS 4.6 mmol/L (-2.0-2.0)
[2021-01-12] MEDS ORDERED: NS 1000 ML 1,000 ML ONE (09:34)
[2021-01-12 09:35] LABS: ABG HCO3 32.7 mmol/L (22-26)
[2021-01-12 09:39] LABS: ALANINE AMINOTRANSFERASE 12 Units/L (12-78); ALBUMIN 3.3 g/dL (3.4-5.0); ALKALINE PHOSPHATASE 80 Units/L (46-116); ASPARTATE AMINO TRANSFERASE 16 Units/L (15-37); BLOOD UREA NITROGEN 13 mg/dL (7-18); CALCIUM 8.4 mg/dL (8.5-10.1); CHLORIDE 103 mmol/L (98-107); CREATININE 0.82 mg/dL (0.55-1.02); MAGNESIUM 1.9 mg/dL (1.7-2.9); SODIUM 141 mmol/L (136-145); TOTAL PROTEIN 6.9 g/dL (6.4-8.2); TROPONIN I < 0.02 ng/mL (0-1.5); eGFR NON BLACK RACES > 60 (>60)
[2021-01-12] MEDS ORDERED: DUONEB 0.5 MG/3 MG (3 mL) NEB ONE (10:28)
--- NOTE | 2021-01-12 12:18 | CT ---
HISTORYShortness of breathSTUDYCTA chest with contrast for pulmonary embolusTechnique: Axial post-contrast images with coronal, sagittal, and 3 dimensional maximum intensity projection images obtained and evaluated. Dose reduction procedures were used with mA/kv adjusted for body size.COMPARISONNoneFINDINGSThere is no evidence for acute pulmonary thromboembolic disease. Examination of the mediastinum demonstrated no evidence for mediastinal masses, enlarged mediastinal or enlarged hilar adenopathy or significant aortic abnormality. No pleural effusions are identified. No chest wall or axillary abnormality is identified. Those portions of the upper abdominal organs visualized were within normal limits. Incidentally noted was a 1.9 cm benign right adrenal adenoma. Examination of the lung kimbrough demonstrated hyperinflation to be present. Diffuse changes of centrilobular emphysema are identified. No definite nodules, masses, alveolar infiltrates, areas of consolidation, or significant bronchiectasis identified.IMPRESSIONNo evidence for acute pulmonary thromboembolic diseaseHyperinflationDiffuse centrilobular emphysemaNo definite acute infiltratesElectronically signed by: MARLEEN COLEMAN (January 12, 2021 12:16:41)
[2021-01-12] MEDS ORDERED: SOLU-Medrol 125 MG VIAL IVP ONE (12:44)
[2021-01-12] MEDS ORDERED: SOLU-Medrol 125 MG VIAL ONE (13:32)
[2021-01-12 14:13] LABS: RSV AG DETECTION NEGATIVE (NEGATIVE)
[2021-01-12 16:29] LABS: BILIRUBIN,URINE NEGATIVE (NEGATIVE); BLOOD/HEMOGLOBIN,URINE NEGATIVE (NEGATIVE); GLUCOSE, URINE NEGATIVE (NEGATIVE); KETONES,URINE NEGATIVE (NEGATIVE); LEUKOCYTE ESTERASE ,URINE 1+ (NEGATIVE); NITRITES,URINE NEGATIVE (NEGATIVE); PROTEIN,URINE 2+ (NEGATIVE); UROBILINOGEN,URINE NORMAL (NORMAL)
[2021-01-12 16:38] LABS: APPEARANCE,URINE CLEAR (CLEAR); COLOR,URINE YELLOW (YELLOW); RBC,URINE 0-2 /HPF (0-3)
[2021-01-12 16:39] LABS: BACTERIA,URINE TRACE /HPF (NEGATIVE); MUCUS,URINE FEW /HPF (NEGATIVE); SQUAMOUS EPITHELIAL CELL,UR MODERATE /HPF (NEGATIVE)
[2021-01-12 17:08] VITALS: BMI 23.8
[2021-01-12] MEDS: DUONEB 0.5 MG/3 MG (3 mL) NEB SCH ×2 (17:10→21:42)
[2021-01-12] MEDS ORDERED: ZITHROMAX INJ 500 MG VIAL 500 MG in NS 250 ML IV 250 ML IV SCH (17:14)
[2021-01-12] MEDS ORDERED: SOLU-Medrol 125 MG VIAL IVP SCH (17:14)
[2021-01-12] MEDS ORDERED: HALDOL PO PRN (17:19)
[2021-01-12] MEDS: ROCEPHIN 1 GRAM IV PREMIX 1 G/50 ML IV.SOLN. IV SCH (17:34)
[2021-01-12] MEDS: GEODON PO SCH (20:22)
[2021-01-12] MEDS: PRED FORTE 1 % OP SCH (20:25)
[2021-01-12] MEDS ORDERED: DESYREL PO SCH (21:00)
[2021-01-13] MEDS ORDERED: TYLENOL 325 MG TAB PO ONE (04:47)
[2021-01-13] MEDS ORDERED: ZADITOR EYE DROPS AFFEYE PRN (07:31)
[2021-01-13 08:53] LABS: BASOPHILS % (AUTO) 0.3 % (0.2-1.0); EOSINOPHILS % (AUTO) 0.1 % (0.9-2.9); HEMATOCRIT 38.9 % (36.0-47.0); HEMOGLOBIN 12.8 g/dL (12.0-16.0); LYMPHOCYTES # (AUTO) 0.9 X10^3/uL (1.3-2.9); LYMPHOCYTES % (AUTO) 11.2 % (21.0-51.0); MEAN CORPUSCULAR HEMOGLOBIN 27.8 pg (27.0-34.0); MEAN CORPUSCULAR HGB CONC 32.8 g/dL (33.0-35.0); MEAN CORPUSCULAR VOLUME 84.7 fL (80.0-100.0); MEAN PLATELET VOLUME 7.7 fL (7.4-11.0); MONOCYTES # (AUTO) 0.6 x10^3/uL (0.3-0.8); MONOCYTES % (AUTO) 7.1 % (0.0-13.0); NEUTROPHILS # (AUTO) 6.5 x10^3/uL (2.2-4.8); NEUTROPHILS % (AUTO) 81.3 % (42.0-75.0); PLATELET COUNT 196 X10^3/uL (150.0-450.0); RED BLOOD COUNT 4.59 X10^6/uL (3.5-5.4); RED CELL DISTRIBUTION WIDTH 13.5 % (11.6-16.5)
[2021-01-13] MEDS ORDERED: OLOPATADINE 0.2% OP SCH (09:00)
[2021-01-13 09:01] LABS: ALANINE AMINOTRANSFERASE 9 Units/L (12-78); ALBUMIN 2.9 g/dL (3.4-5.0); ALKALINE PHOSPHATASE 77 Units/L (46-116); ASPARTATE AMINO TRANSFERASE 18 Units/L (15-37); BLOOD UREA NITROGEN 14 mg/dL (7-18); CARBON DIOXIDE 25.5 mmol/L (21-32); COR CA(FOR HYPOALB) 8.9 mg/dL (8.5-10.1); CREATININE 0.75 mg/dL (0.55-1.02); TOTAL PROTEIN 6.6 g/dL (6.4-8.2); eGFR NON BLACK RACES > 60 (>60)
[2021-01-13] MEDS: DUONEB 0.5 MG/3 MG (3 mL) NEB SCH (09:10)
[2021-01-13 09:11] LABS: CHLORIDE 102 mmol/L (98-107); COR NA(FOR HYPERGLY) 138 mmol/L (136-145); SODIUM 137 mmol/L (136-145)
[2021-01-13] MEDS: PRED FORTE 1 % OP SCH (09:22)
[2021-01-13] MEDS: GEODON PO SCH (09:23)
[2021-01-13] MEDS: ROCEPHIN 1 GRAM IV PREMIX 1 G/50 ML IV.SOLN. IV SCH (09:23)
--- NOTE | 2021-01-13 09:35 | DR.H&P ---
H&P History & Physical for Day of: H&P Date: 01/13/21 Chief Complaint Chief Complaint: Lethargy Shortness of breath Allergies Allergies Allergy/AdvReac Type Severity Reaction Status Date / Time promethazine [From Phenergan] Allergy Verified 11/26/18 21:21 History of Present Illness History of Present Illness: Pt is a 85 year old female past medical history of COPD, Hypothyroidism, Dementia, admitted after being lethargic and noted by daughter having dyspnea with pulse oximetry 76%. Pt was brought to the ED via EMS and ABG was obtained and revealed: pH 7.31, pCO2 65, pO2 80, HCO3 32, O2sat 95% on RA. She was briefly placed on BiPAP support but was able to be weaned off quickly to 2L nasal cannula. Labs/imaging: Wbc 7.8>8.0, Hgb 12.8, Plt 196, Na 137, K 4.8, Creatinine 0.75, Glucose 158, d-dimer 0.79, Troponin negative, UA not c/w infection, COVID-19/Flu negative, CXR: Emphysema. Mild cardiomegaly. No acute changes. CTA Chest: No evidence for acute pulmonary thromboembolic disease. Hyperinflation. Diffuse centrilobular emphysema. No definite acute in filtrates. On exam patient is alert and oriented back to her baseline, daughter in room confirming. Pt is legally blind but per daughter is relatively independent at home. Pt did not appear to be having any labored breathing. She was given Rocephin and Bronchodilators and responded well to treatments. Imaging does show significant Emphysema which I believe is the underlying cause of her acute lethargy, confusion, dyspnea. No signs of acute infection. Contributing factor could also be her pain medication. Pt instructed to decrease her hydrocodone in half. Pt was recently started on inhalers for COPD outpatient to continue at home, will discharge patient with home O2, she has done well in hosp [facility] on 2L, as well as rx nebulizer with duoneb vials. Pt discharged in stable condition, instructed to follow up with pcp in 3-5 days. Past Medical History Past Medical History: COPD and Hypothyroidism Past Surgical History Surgical History: Ortho Surgery Family History Family Medical History: Hypertension Social History Does patient currently use any type of tobacco product: No Have you used tobacco products in the last 12 months: No Type of Tobacco Use: Cigarettes How many years tobacco product used: 30 Alcohol Use: None Drug Use: None Medications Home Medications: promethazine [From Phenergan] Allergy (Verified 11/26/18 21:21) CONTINUE taking the following medications celecoxib 100 mg PO DAILY 01/12/21 [History] cetirizine 10 mg PO DAILY 01/12/21 [History] diazepam [Valium] 5 mg PO Q8H PRN 01/12/21 [History] ergocalciferol (vitamin D2) [Vitamin D2] 50,000 unit PO WEEKLY 01/12/21 [History] haloperidol 0.5 mg PO QID PRN 01/12/21 [History] metoclopramide HCl [Reglan] 10 mg PO QID PRN 01/12/21 [History] olopatadine 1 drp OPHTHALMIC (EYE) DAILY 01/12/21 [History] prednisolone acetate 1 drp OPHTHALMIC (EYE) BID 01/12/21 [History] quetiapine 25 mg PO HS 01/12/21 [History] ziprasidone HCl 20 mg PO BID 01/12/21 [History] Labs Result Diagrams: 01/13/21 08:30 01/13/21 08:30 Labs: Laboratory WBC 8.0 X10^3/uL (3.6-10.0) 01/13/21 08:30 RBC 4.59 X10^6/uL (3.5-5.4) 01/13/21 08:30 Hgb 12.8 g/dL (12.0-16.0) 01/13/21 08:30 Hct 38.9 % (36.0-47.0) 01/13/21 08:30 MCV 84.7 fL (80.0-100.0) 01/13/21 08:30 MCH 27.8 pg (27.0-34.0) 01/13/21 08:30 MCHC 32.8 g/dL (33.0-35.0) L 01/13/21 08:30 RDW 13.5 % (11.6-16.5) 01/13/21 08:30 Plt Count 196 X10^3/uL (150.0-450.0) 01/13/21 08:30 MPV 7.7 fL (7.4-11.0) 01/13/21 08:30 Neut % (Auto) 81.3 % (42.0-75.0) H 01/13/21 08:30 Lymph % (Auto) 11.2 % (21.0-51.0) L 01/13/21 08:30 [place] % (Auto) 7.1 % (0.0-13.0) 01/13/21 08:30 Eos % (Auto) 0.1 % (0.9-2.9) L 01/13/21 08:30 Baso % (Auto) 0.3 % (0.2-1.0) 01/13/21 08:30 Neut # (Auto) 6.5 x10^3/uL (2.2-4.8) H 01/13/21 08:30 Lymph # (Auto) 0.9 X10^3/uL (1.3-2.9) L 01/13/21 08:30 [place] # (Auto) 0.6 x10^3/uL (0.3-0.8) 01/13/21 08:30 Eos # (Auto) 0.0 x10^3/uL (0.0-0.2) 01/13/21 08:30 Baso # (Auto) 0.0 X10^3/uL (0.0-0.1) 01/13/21 08:30 Absolute Nucleated RBC 0.1 /100WBC 01/13/21 08:30 D-Dimer 0.79 ug/ml (0.0-0.57) H* 01/12/21 08:52 Sample Site R brachial 01/12/21 09:25 ABG pH 7.310 (7.35-7.45) L 01/12/21 09:25 ABG pCO2 65.0 mmHg (35.0-45.0) H* 01/12/21 09:25 ABG pO2 80.0 mmHg (80.0-100.0) 01/12/21 09:25 ABG HCO3 32.7 mmol/L (22-26) H* 01/12/21 09:25 ABG O2 Saturation 95.0 % (90-100) 01/12/21 09:25 ABG Base Excess 4.6 mmol/L (-2.0-2.0) H 01/12/21 09:25 Michael Test Na 01/12/21 09:25 A-a Gradient 38.0 mmHg 01/12/21 09:25 FiO2 28.0 01/12/21 09:25 Blood Gas Comments Delmis well, kh 01/12/21 09:25 Sodium 137 mmol/L (136-145) 01/13/21 08:30 Corrected Sodium 138 mmol/L (136-145) 01/13/21 08:30 Potassium 4.8 mmol/L (3.5-5.1) 01/13/21 08:30 Chloride 102 mmol/L (98-107) 01/13/21 08:30 Carbon Dioxide 25.5 mmol/L (21-32) 01/13/21 08:30 BUN 14 mg/dL (7-18) 01/13/21 08:30 Creatinine 0.75 mg/dL (0.55-1.02) 01/13/21 08:30 Est GFR (MDRD) Af Amer > 60 (>60) 01/13/21 08:30 Est GFR (MDRD) Non-Af > 60 (>60) 01/13/21 08:30 Glucose 158 mg/dL (65-99) H 01/13/21 08:30 Calcium 8.0 mg/dL (8.5-10.1) L 01/13/21 08:30 Corrected Calcium 8.9 mg/dL (8.5-10.1) 01/13/21 08:30 Magnesium 1.9 mg/dL (1.7-2.9) 01/12/21 08:52 Total Bilirubin 0.20 mg/dL (0.2-1.0) 01/13/21 08:30 AST 18 Units/L (15-37) 01/13/21 08:30 ALT 9 Units/L (12-78) L 01/13/21 08:30 Alkaline Phosphatase 77 Units/L (46-116) 01/13/21 08:30 Troponin I < 0.02 ng/mL (0-1.5) 01/12/21 08:52 B-Natriuretic Peptide 40.4 pg/mL (0-79) 01/12/21 08:52 Total Protein 6.6 g/dL (6.4-8.2) 01/13/21 08:30 Albumin 2.9 g/dL (3.4-5.0) L 01/13/21 08:30 Globulin 3.7 g/dL (2.5-4.5) 01/13/21 08:30 Albumin/Globulin Ratio 0.8 Ratio (1.1-2.1) L 01/13/21 08:30 Specimen Type Clean catch urine 01/12/21 16:15 Urine Color Yellow (YELLOW) 01/12/21 16:15 Urine Appearance Clear (CLEAR) 01/12/21 16:15 Urine pH 5.0 (5.0 - 8.0) 01/12/21 16:15 Ur Specific [place] 1.010 (1.000-1.030) 01/12/21 16:15 Urine Protein 2+ (NEGATIVE) 01/12/21 16:15 Urine Glucose (UA) Negative (NEGATIVE) 01/12/21 16:15 Urine Ketones Negative (NEGATIVE) 01/12/21 16:15 Urine Occult Blood Negative (NEGATIVE) 01/12/21 16:15 Urine Nitrite Negative (NEGATIVE) 01/12/21 16:15 Urine Bilirubin Negative (NEGATIVE) 01/12/21 16:15 Urine Urobilinogen Normal (NORMAL) 01/12/21 16:15 Ur Leukocyte Esterase 1+ (NEGATIVE) 01/12/21 16:15 Urine RBC 0-2 /HPF (0-3) 01/12/21 16:15 Urine WBC 5-10 /HPF (0-5) A 01/12/21 16:15 Ur Squamous Epith Cells Moderate /HPF (NEGATIVE) 01/12/21 16:15 Urine Bacteria Trace /HPF (NEGATIVE) 01/12/21 16:15 Urine Mucus Few /HPF (NEGATIVE) 01/12/21 16:15 Ur Culture Indicated? No/not indicated 01/12/21 16:15 RSV Nasal Swab Negative (NEGATIVE) 01/12/21 13:27 SARS-CoV-2 (PCR) Cancelled 01/12/21 09:46 Influenza Type A Ag Negative-presumptive (NEGATIVE) 01/12/21 13:27 Influenza Type A (PCR) Cancelled 01/12/21 09:46 Influenza Type B Ag Negative-presumptive (NEGATIVE) 01/12/21 13:27 Influenza Type B (PCR) Cancelled 01/12/21 09:46 RSV (PCR) Cancelled 01/12/21 09:46 SARS CoV-2 RNA Rapid NINOSKA Negative (NEGATIVE) 01/12/21 09:44 Review of Systems Constitutional: No Symptoms Reported Eyes: No Symptoms Reported ENT: No Symptoms Reported Respiratory: Shortness of Breath Cardiovascular: No Symptoms Reported Gastrointestinal: No Symptoms Reported Genitourinary: No Symptoms Reported Musculoskeletal: No Symptoms Reported Skin: No Symptoms Reported Neurological: Confusion Physical Exam Vital Signs: Temperature 97.5 F Pulse Rate [Left] 76 Pulse Rate 66 Respiratory Rate 18 Blood Pressure [Right Arm] 101/49 Blood Pressure 147/66 O2 Sat by Pulse Oximetry 92 Oriented: Other (Normal per baseline) Eyes: Normal Ear: Normal Nose: Normal Throat: Normal Respiratory: Diminished Throughout Cardiovascular: Normal : Normal Auscultation: Bowel Sounds: Normal Palpation: Normal Tenderness: Normal Skin: Normal Musculoskeletal: Normal Psychiatric: Normal Mood Description: Calm and Appropriate Affect: Normal Speech Pattern: Clear and Appropriate Assessment/Plan (1) Acute exacerbation of chronic obstructive pulmonary disease (COPD): Status: Acute Plan: Discharge home with home oxygen 2L, Nebulizer with duoneb vials. Further antibiotics or steroids not indicated at this time. Review H&P Reviewed: Yes Patient was examined?: Yes
[2021-01-13] MEDS ORDERED: LOVENOX INJ 40 MG SYR SC SCH (12:00)
[2021-01-13 13:16] VITALS: BP 92/46
[2021-01-13] MEDS ORDERED: SYNTHROID 137 mcg TAB PO SCH (16:30)
== END 2021-01-13 14:50 | disposition home health service (06) | DRG 192 ==
LOC: ER 08:29 → MED/SURG 13:49
PROVIDERS: ADMIT Family Medicine; ATTEND Family Medicine
DX: Z20.822 Contact with and (suspected) exposure to COVID-19; E03.8 Other specified hypothyroidism; R79.1 Abnormal coagulation profile; Z66 Do not resuscitate; J44.1 Chronic obstructive pulmonary disease with (acute) exacerbation

== ENCOUNTER 2023-04-23 09:58 | Inpatient (IN) ==
--- NOTE | 2023-04-23 10:08 | DR.DIZZY ---
HPI Time seen Time Seen by Provider: 04/23/23 10:07 PMH PMH Past Medical History: COPD and Hypothyroidism Past Surgical History: Yes Surgical History: Bowel Resection, Hysterectomy and Ortho Surgery Family History Family Medical History: Coronary Artery Disease and Hypertension Social History Do you use any recreational Drugs:: No PE Vital Signs Vitals: Vital Signs Temperature 97.4 F Pulse Rate 84 Pulse Rate 86 Pulse Rate 88 Pulse Rate 88 Pulse Rate 89 Pulse Rate 92 Pulse Rate 95 Pulse Rate 98 Pulse Rate 99 Pulse Rate 95 Respiratory Rate 22 Blood Pressure 165/75 Blood Pressure 133/73 Blood Pressure 136/77 Blood Pressure 189/120 Blood Pressure 186/79 O2 Sat by Pulse Oximetry 91 O2 Sat by Pulse Oximetry 91 O2 Sat by Pulse Oximetry 91 O2 Sat by Pulse Oximetry 92 O2 Sat by Pulse Oximetry 94 O2 Sat by Pulse Oximetry 93 O2 Sat by Pulse Oximetry 95 O2 Sat by Pulse Oximetry 94 O2 Sat by Pulse Oximetry 92 O2 Sat by Pulse Oximetry 92 ROR Labs Reviewed 04/23/23 11:04 04/23/23 11:04 Laboratory: WBC 8.8 X10^3/uL (3.6-10.0) 04/23/23 11:04 RBC 5.04 X10^6/uL (3.5-5.4) 04/23/23 11:04 Hgb 13.5 g/dL (12.0-16.0) 04/23/23 11:04 Hct 41.1 % (36.0-47.0) 04/23/23 11:04 MCV 81.5 fL (80.0-100.0) 04/23/23 11:04 MCH 26.7 pg (27.0-34.0) L 04/23/23 11:04 MCHC 32.7 g/dL (33.0-35.0) L 04/23/23 11:04 RDW 15.1 % (11.6-16.5) 04/23/23 11:04 Plt Count 217 X10^3/uL (150.0-450.0) 04/23/23 11:04 MPV 8.0 fL (7.4-11.0) 04/23/23 11:04 Neut % (Auto) 68.3 % (42.0-75.0) 04/23/23 11:04 Lymph % (Auto) 19.8 % (21.0-51.0) L 04/23/23 11:04 [place] % (Auto) 9.1 % (0.0-13.0) 04/23/23 11:04 Eos % (Auto) 1.9 % (0.9-2.9) 04/23/23 11:04 Baso % (Auto) 0.9 % (0.2-1.0) 04/23/23 11:04 Neut # (Auto) 6.0 x10^3/uL (2.2-4.8) H 04/23/23 11:04 Lymph # (Auto) 1.7 X10^3/uL (1.3-2.9) 04/23/23 11:04 [place] # (Auto) 0.8 x10^3/uL (0.3-0.8) 04/23/23 11:04 Eos # (Auto) 0.2 x10^3/uL (0.0-0.2) 04/23/23 11:04 Baso # (Auto) 0.1 X10^3/uL (0.0-0.1) 04/23/23 11:04 Absolute Nucleated RBC 0.1 /100WBC 04/23/23 11:04 Sodium 140 mmol/L (136-145) 04/23/23 11:04 Corrected Sodium TNP 04/23/23 11:04 Potassium 3.8 mmol/L (3.5-5.1) 04/23/23 11:04 Chloride 101 mmol/L (98-107) 04/23/23 11:04 Carbon Dioxide 29.1 mmol/L (21-32) 04/23/23 11:04 BUN 30 mg/dL (7-18) H 04/23/23 11:04 Creatinine 1.97 mg/dL (0.55-1.02) H 04/23/23 11:04 Est GFR (MDRD) Af Amer 31 (>60) L 04/23/23 11:04 Est GFR (MDRD) Non-Af 25 (>60) L 04/23/23 11:04 Glucose 83 mg/dL (65-99) 04/23/23 11:04 Calcium 9.0 mg/dL (8.5-10.1) 04/23/23 11:04 Corrected Calcium TNP 04/23/23 11:04 Total Bilirubin 0.70 mg/dL (0.2-1.0) 04/23/23 11:04 AST 18 Units/L (15-37) 04/23/23 11:04 ALT < 6 Units/L (12-78) L 04/23/23 11:04 Alkaline Phosphatase 70 Units/L (46-116) 04/23/23 11:04 Creatine Kinase 40 Units/L (26-192) 04/23/23 11:04 Troponin I High Sens 24.5 ng/L (4.0-60.0) 04/23/23 11:04 Total Protein 6.5 g/dL (6.4-8.2) 04/23/23 11:04 Albumin 3.4 g/dL (3.4-5.0) 04/23/23 11:04 Globulin 3.1 g/dL (2.5-4.5) 04/23/23 11:04 Albumin/Globulin Ratio 1.1 Ratio (1.1-2.1) 04/23/23 11:04 Specimen Type Clean catch urine 04/23/23 10:29 Urine Color Yellow (YELLOW) 04/23/23 10:29 Urine Appearance Slightly hazy (CLEAR) 04/23/23 10:29 Urine pH 5.0 (5.0 - 8.0) 04/23/23 10:29 Ur Specific [place] 1.020 (1.000-1.030) 04/23/23 10:29 Urine Protein 1+ (NEGATIVE) 04/23/23 10:29 Urine Glucose (UA) Negative (NEGATIVE) 04/23/23 10:29 Urine Ketones 2+ (NEGATIVE) 04/23/23 10:29 Urine Blood Negative (NEGATIVE) 04/23/23 10:29 Urine Nitrite Negative (NEGATIVE) 04/23/23 10:29 Urine Bilirubin Negative (NEGATIVE) 04/23/23 10:29 Urine Urobilinogen Normal (NORMAL) 04/23/23 10:29 Ur Leukocyte Esterase 2+ (NEGATIVE) 04/23/23 10:29 Urine RBC None seen /HPF (0-3) 04/23/23 10:29 Urine WBC 3-5 /HPF (0-5) 04/23/23 10:29 Ur Squamous Epith Cells Many /HPF (NEGATIVE) 04/23/23 10:29 Amorphous Sediment 1+ /HPF (NEGATIVE) 04/23/23 10:29 Urine Bacteria Negative /HPF (NEGATIVE) 04/23/23 10:29 Ur Culture Indicated? No/not indicated 04/23/23 10:29 Opioid Opioid Risk Tool Age (Anup box if 16-45): No History of Preadolescent Sexual Abuse: No Total: 0 Total Score Risk Category: Low Risk Copyright: [facility] predicting aberrant behaviors Discharge Plan Discharge Plan Patient Disposition: HOME, SELF-CARE Condition: Stable Prescriptions: No Action pantoprazole 40 mg tablet,delayed release (DR/EC) 40 mg PO QDAY Qty: 30 3RF hydroxyzine HCl 25 mg tablet 25 mg PO QID PRN (Reason: itching) 30 Days Qty: 120 3RF celecoxib 100 mg capsule 100 mg PO QDAY Qty: 30 3RF oxycodone 5 mg tablet 5 mg PO BID MDD 10 mg PRN (Reason: pain) 30 Days Qty: 60 0RF trazodone 100 mg tablet 100 mg PO QPM cetirizine 10 mg tablet 10 mg PO QDAY Qty: 90 3RF ciprofloxacin HCl 500 mg tablet 500 mg PO BID Qty: 20 0RF levothyroxine 125 mcg tablet 125 mcg PO QDAY megestrol 40 mg tablet 20 mg PO DAILY diazepam [Valium] 5 mg tablet 2.5 - 5 mg PO QDAY PRN (Reason: anxiety) Rx Instructions: 1/2 to 1 tablet daily as needed Health Concerns: Post Hospitalization: new medications and changes needed to prevent readmission or further decline. Pt educated and given instructions on all concerns. Plan of Treatment: Continue with present treatment and follow up plan. Pt is to keep follow up ap pointment as instructed and take medications as ordered. Orders to Discharge Patient Discharge Orders: Transfer (Routine); Ordered 04/23/23 Ordered By: GABRIELA RAMIREZ Follow ups/Referrals Follow ups/Referrals: SANTOS BENAVIDES [Primary Care Provider] - 3 days Instructions Stand Alone Forms: Post Hospital Follow Up Care
[2023-04-23 10:11] VITALS: BMI 18.0
[2023-04-23] MEDS ORDERED: NS 1,000 ML IV 1,000 ML ONE (10:41)
[2023-04-23] MEDS: NS 1,000 ML IV 1,000 ML IV SCH (10:47)
--- NOTE | 2023-04-23 10:48 | EKG ---
Test Reason : Hypertension Blood Pressure : */* mmHG Vent. Rate : 101 BPM Atrial Rate : 101 BPM P-R Int : 162 ms QRS Dur : 68 ms QT Int : 398 ms P-R-T Axes : 70 37 52 degrees QTc Int : 516 ms Sinus tachycardia with occasional premature ventricular complexes Cannot rule out Anterior infarct , age undetermined Abnormal ECG No previous ECGs available Referred By: Confirmed By:
[2023-04-23 10:55] LABS: BILIRUBIN,URINE NEGATIVE (NEGATIVE); BLOOD/HEMOGLOBIN,URINE NEGATIVE (NEGATIVE); GLUCOSE, URINE NEGATIVE (NEGATIVE); KETONES,URINE 2+ (NEGATIVE); LEUKOCYTE ESTERASE ,URINE 2+ (NEGATIVE); NITRITES,URINE NEGATIVE (NEGATIVE); PROTEIN,URINE 1+ (NEGATIVE); UROBILINOGEN,URINE NORMAL (NORMAL)
[2023-04-23 11:01] LABS: APPEARANCE,URINE SLIGHTLY HAZY (CLEAR); COLOR,URINE YELLOW (YELLOW)
[2023-04-23 11:09] LABS: RBC,URINE NONE SEEN /HPF (0-3); SQUAMOUS EPITHELIAL CELL,UR MANY /HPF (NEGATIVE)
[2023-04-23 11:10] LABS: BACTERIA,URINE NEGATIVE /HPF (NEGATIVE)
[2023-04-23 11:23] LABS: BASOPHILS # (AUTO) 0.1 X10^3/uL (0.0-0.1); BASOPHILS % (AUTO) 0.9 % (0.2-1.0); EOSINOPHILS # (AUTO) 0.2 x10^3/uL (0.0-0.2); EOSINOPHILS % (AUTO) 1.9 % (0.9-2.9); HEMATOCRIT 41.1 % (36.0-47.0); HEMOGLOBIN 13.5 g/dL (12.0-16.0); LYMPHOCYTES # (AUTO) 1.7 X10^3/uL (1.3-2.9); LYMPHOCYTES % (AUTO) 19.8 % (21.0-51.0); MEAN CORPUSCULAR HEMOGLOBIN 26.7 pg (27.0-34.0); MEAN CORPUSCULAR HGB CONC 32.7 g/dL (33.0-35.0); MEAN CORPUSCULAR VOLUME 81.5 fL (80.0-100.0); MONOCYTES # (AUTO) 0.8 x10^3/uL (0.3-0.8); MONOCYTES % (AUTO) 9.1 % (0.0-13.0); NEUTROPHILS % (AUTO) 68.3 % (42.0-75.0); PLATELET COUNT 217 X10^3/uL (150.0-450.0); RED BLOOD COUNT 5.04 X10^6/uL (3.5-5.4); RED CELL DISTRIBUTION WIDTH 15.1 % (11.6-16.5); WHITE BLOOD COUNT 8.8 X10^3/uL (3.6-10.0)
[2023-04-23 11:33] LABS: ALANINE AMINOTRANSFERASE < 6 Units/L (12-78); ALBUMIN 3.4 g/dL (3.4-5.0); ALKALINE PHOSPHATASE 70 Units/L (46-116); ASPARTATE AMINO TRANSFERASE 18 Units/L (15-37); BLOOD UREA NITROGEN 30 mg/dL (7-18); CARBON DIOXIDE 29.1 mmol/L (21-32); CHLORIDE 101 mmol/L (98-107); CREATINE KINASE 40 Units/L (26-192); CREATININE 1.97 mg/dL (0.55-1.02); GLUCOSE 83 mg/dL (65-99); POTASSIUM 3.8 mmol/L (3.5-5.1); SODIUM 140 mmol/L (136-145); TOTAL PROTEIN 6.5 g/dL (6.4-8.2); eGFR NON BLACK RACES 25 (>60)
--- NOTE | 2023-04-23 11:50 | RAD ---
HISTORYSOB ON EXERTIONSTUDYCHEST, 1 [id number] cardiomediastinal silhouette is stable. Chronic interstitial changes in the lungs. No acute airspace disease. No pneumothorax or effusion. The bony thorax appears intact.IMPRESSIONNo acute cardiopulmonary disease.Electronically signed by: MARLEEN COLEMAN (Apr 23, 2023 11:49:15)
[2023-04-23] MEDS ORDERED: CONSULT PHARMACY - POTASSIUM & MAGNESIUM XX SCH (14:12)
[2023-04-23] MEDS ORDERED: K-DUR TAB 20 MEQ PO ONE (15:00)
[2023-04-23] MEDS: DESYREL PO SCH (21:17)
[2023-04-24] MEDS: NS 1,000 ML IV 1,000 ML IV SCH ×2 (01:50→16:29)
[2023-04-24 07:01] LABS: BASOPHILS # (AUTO) 0.1 X10^3/uL (0.0-0.1); EOSINOPHILS # (AUTO) 0.2 x10^3/uL (0.0-0.2); EOSINOPHILS % (AUTO) 2.7 % (0.9-2.9); HEMATOCRIT 36.6 % (36.0-47.0); HEMOGLOBIN 11.8 g/dL (12.0-16.0); LYMPHOCYTES # (AUTO) 1.8 X10^3/uL (1.3-2.9); LYMPHOCYTES % (AUTO) 22.3 % (21.0-51.0); MEAN CORPUSCULAR HEMOGLOBIN 26.6 pg (27.0-34.0); MEAN CORPUSCULAR HGB CONC 32.2 g/dL (33.0-35.0); MEAN CORPUSCULAR VOLUME 82.4 fL (80.0-100.0); MEAN PLATELET VOLUME 8.3 fL (7.4-11.0); MONOCYTES # (AUTO) 0.8 x10^3/uL (0.3-0.8); MONOCYTES % (AUTO) 10.2 % (0.0-13.0); NEUTROPHILS # (AUTO) 5.2 x10^3/uL (2.2-4.8); NEUTROPHILS % (AUTO) 63.8 % (42.0-75.0); PLATELET COUNT 195 X10^3/uL (150.0-450.0); RED BLOOD COUNT 4.44 X10^6/uL (3.5-5.4); RED CELL DISTRIBUTION WIDTH 15.2 % (11.6-16.5); WHITE BLOOD COUNT 8.1 X10^3/uL (3.6-10.0)
[2023-04-24 07:17] LABS: ALANINE AMINOTRANSFERASE < 6 Units/L (12-78); ALBUMIN 2.7 g/dL (3.4-5.0); ALKALINE PHOSPHATASE 59 Units/L (46-116); ASPARTATE AMINO TRANSFERASE 21 Units/L (15-37); BLOOD UREA NITROGEN 28 mg/dL (7-18); CALCIUM 8.3 mg/dL (8.5-10.1); CARBON DIOXIDE 23.4 mmol/L (21-32); CHLORIDE 105 mmol/L (98-107); COR CA(FOR HYPOALB) 9.3 mg/dL (8.5-10.1); GLUCOSE 68 mg/dL (65-99); MAGNESIUM 1.6 mg/dL (2.0-2.9); POTASSIUM 3.9 mmol/L (3.5-5.1); SODIUM 142 mmol/L (136-145); TOTAL PROTEIN 5.6 g/dL (6.4-8.2); eGFR NON BLACK RACES 28 (>60)
[2023-04-24] MEDS: LOVENOX INJ 30 MG SYR SC SCH (09:53)
--- NOTE | 2023-04-24 11:08 | DR.H&P ---
H&P History & Physical for Day of: H&P Date: 04/24/23 Chief Complaint Chief Complaint: Adult failure to thrive Allergies Allergies Allergy/AdvReac Type Severity Reaction Status Date / Time promethazine [From Phenergan] Allergy Unknown Verified 03/20/23 14:51 History of Present Illness History of Present Illness: This is a pleasant 87-year-old white female well-known to me. I have been speaking with her daughter concerning her home life. She has reached the point where she is having great difficulty ambulating and getting around. She is completely blind now, and this makes it very difficult for her to stay by herself. Her daughter works full-time but has to take off a lot of work to sit with her mother. I have discussed the patient's condition with the family to let them know that she is getting older and weaker and there is not a good chance that she could be independent and stay herself anymore. The family is leaning towards full-time correction placement at this time. Leaning towards full-time correction placement at this time. Past Medical History Past Medical History: COPD and Hypothyroidism Past Surgical History Surgical History: Bowel Resection, Hysterectomy and Ortho Surgery Family History Family Medical History: Coronary Artery Disease and Hypertension Social History Does patient currently use any type of tobacco product: No Have you used tobacco products in the last 12 months: No Alcohol Use: Occasionally Drug Use: None Medications Home Medications: Home Medications Medication Instructions Recorded Confirmed Type trazodone 100 mg tablet 100 mg PO QPM 02/23/23 04/23/23 History diazepam 5 mg tablet (Valium) 2.5 - 5 mg PO QDAY PRN anxiety 03/20/23 04/23/23 History levothyroxine 125 mcg tablet 125 mcg PO QDAY 03/20/23 04/23/23 History megestrol 40 mg tablet 20 mg PO DAILY 03/20/23 04/23/23 History Labs 04/24/23 05:35 04/24/23 05:35 Labs: Laboratory WBC 8.1 X10^3/uL (3.6-10.0) 04/24/23 05:35 RBC 4.44 X10^6/uL (3.5-5.4) 04/24/23 05:35 Hgb 11.8 g/dL (12.0-16.0) L 04/24/23 05:35 Hct 36.6 % (36.0-47.0) 04/24/23 05:35 MCV 82.4 fL (80.0-100.0) 04/24/23 05:35 MCH 26.6 pg (27.0-34.0) L 04/24/23 05:35 MCHC 32.2 g/dL (33.0-35.0) L 04/24/23 05:35 RDW 15.2 % (11.6-16.5) 04/24/23 05:35 Plt Count 195 X10^3/uL (150.0-450.0) 04/24/23 05:35 MPV 8.3 fL (7.4-11.0) 04/24/23 05:35 Neut % (Auto) 63.8 % (42.0-75.0) 04/24/23 05:35 Lymph % (Auto) 22.3 % (21.0-51.0) 04/24/23 05:35 [place] % (Auto) 10.2 % (0.0-13.0) 04/24/23 05:35 Eos % (Auto) 2.7 % (0.9-2.9) 04/24/23 05:35 Baso % (Auto) 1.0 % (0.2-1.0) 04/24/23 05:35 Neut # (Auto) 5.2 x10^3/uL (2.2-4.8) H 04/24/23 05:35 Lymph # (Auto) 1.8 X10^3/uL (1.3-2.9) 04/24/23 05:35 [place] # (Auto) 0.8 x10^3/uL (0.3-0.8) 04/24/23 05:35 Eos # (Auto) 0.2 x10^3/uL (0.0-0.2) 04/24/23 05:35 Baso # (Auto) 0.1 X10^3/uL (0.0-0.1) 04/24/23 05:35 Absolute Nucleated RBC 0.0 /100WBC 04/24/23 05:35 Sodium 142 mmol/L (136-145) 04/24/23 05:35 Corrected Sodium TNP 04/24/23 05:35 Potassium 3.9 mmol/L (3.5-5.1) 04/24/23 05:35 Chloride 105 mmol/L (98-107) 04/24/23 05:35 Carbon Dioxide 23.4 mmol/L (21-32) 04/24/23 05:35 BUN 28 mg/dL (7-18) H 04/24/23 05:35 Creatinine 1.80 mg/dL (0.55-1.02) H 04/24/23 05:35 Est GFR (MDRD) Af Amer 34 (>60) L 04/24/23 05:35 Est GFR (MDRD) Non-Af 28 (>60) L 04/24/23 05:35 Glucose 68 mg/dL (65-99) 04/24/23 05:35 POC Glucose (mg/dL) 70 mg/dL (65-99) 04/24/23 05:15 Calcium 8.3 mg/dL (8.5-10.1) L 04/24/23 05:35 Corrected Calcium 9.3 mg/dL (8.5-10.1) 04/24/23 05:35 Magnesium 1.6 mg/dL (2.0-2.9) L 04/24/23 05:35 Total Bilirubin 0.60 mg/dL (0.2-1.0) 04/24/23 05:35 AST 21 Units/L (15-37) 04/24/23 05:35 ALT < 6 Units/L (12-78) L 04/24/23 05:35 Alkaline Phosphatase 59 Units/L (46-116) 04/24/23 05:35 Creatine Kinase 40 Units/L (26-192) 04/23/23 11:04 Troponin I High Sens 24.5 ng/L (4.0-60.0) 04/23/23 11:04 B-Natriuretic Peptide 124 pg/mL (0-79) H 04/23/23 11:04 Total Protein 5.6 g/dL (6.4-8.2) L 04/24/23 05:35 Albumin 2.7 g/dL (3.4-5.0) L 04/24/23 05:35 Globulin 2.9 g/dL (2.5-4.5) 04/24/23 05:35 Albumin/Globulin Ratio 0.9 Ratio (1.1-2.1) L 04/24/23 05:35 Specimen Type Clean catch urine 04/23/23 10:29 Urine Color Yellow (YELLOW) 04/23/23 10:29 Urine Appearance Slightly hazy (CLEAR) 04/23/23 10:29 Urine pH 5.0 (5.0 - 8.0) 04/23/23 10:29 Ur Specific [place] 1.020 (1.000-1.030) 04/23/23 10:29 Urine Protein 1+ (NEGATIVE) 04/23/23 10:29 Urine Glucose (UA) Negative (NEGATIVE) 04/23/23 10:29 Urine Ketones 2+ (NEGATIVE) 04/23/23 10:29 Urine Blood Negative (NEGATIVE) 04/23/23 10: Urine Nitrite Negative (NEGATIVE) 04/23/23 10: Urine Bilirubin Negative (NEGATIVE) 04/23/23 10:29 Urine Urobilinogen Normal (NORMAL) 04/23/23 10:29 Ur Leukocyte Esterase 2+ (NEGATIVE) 04/23/23 10:29 Urine RBC None seen /HPF (0-3) 04/23/23 10:29 Urine WBC 3-5 /HPF (0-5) 04/23/23 10:29 Ur Squamous Epith Cells Many /HPF (NEGATIVE) 04/23/23 10:29 Amorphous Sediment 1+ /HPF (NEGATIVE) 04/23/23 10:29 Urine Bacteria Negative /HPF (NEGATIVE) 04/23/23 10:29 Ur Culture Indicated? No/not indicated 04/23/23 10:29 SARS-CoV-2 (PCR) Negative (NEGATIVE) 04/23/23 11:16 Influenza Type A (PCR) Negative (NEGATIVE) 04/23/23 11:16 Influenza Type B (PCR) Negative (NEGATIVE) 04/23/23 11:16 RSV (PCR) Negative (NEGATIVE) 04/23/23 11:16 Review of Systems Constitutional: No Symptoms Reported Eyes: Other (Patient) ENT: No Symptoms Reported Respiratory: No Symptoms Reported Cardiovascular: No Symptoms Reported Gastrointestinal: No Symptoms Reported Genitourinary: No Symptoms Reported Musculoskeletal: No Symptoms Reported Skin: No Symptoms Reported Neurological: Weakness Physical Exam Vital Signs: Vital Signs Temperature 98.3 F Temperature 97.6 F Pulse Rate [Left Brachial] 99 Pulse Rate [Left Brachial] 82 Respiratory Rate 22 Respiratory Rate 16 Blood Pressure [Left Arm] 175/77 Blood Pressure [Left Arm] 160/79 O2 Sat by Pulse Oximetry 95 O2 Sat by Pulse Oximetry 94 Oriented: Normal Eyes: Other (Bilateral blindness) Ear: Normal Nose: Normal Throat: Normal Respiratory: Clear Throughout Cardiovascular: Normal Auscultation: Bowel Sounds: Normal Palpation: Normal Tenderness: Normal Skin: Decreased Turgur Musculoskeletal: Normal Psychiatric: Anxiety and Agitation Mood Description: Calm Affect: Normal Speech Pattern: Clear and Appropriate Assessment/Plan (1) Adult failure to thrive: Status: Acute Plan: We will initiate correction placement. We will try to get her in at [facility] in [place], [place]. (2) Behavioral change: Status: Acute (3) Dehydration: Status: Acute Plan: IV hydration.
[2023-04-24] MEDS: ROXICODONE TAB 5 MG PO PRN (17:19)
[2023-04-24] MEDS: DESYREL PO SCH (20:11)
[2023-04-25] MEDS: NS 1,000 ML IV 1,000 ML IV SCH (04:38)
[2023-04-25 06:27] LABS: BASOPHILS # (AUTO) 0.1 X10^3/uL (0.0-0.1); EOSINOPHILS # (AUTO) 0.2 x10^3/uL (0.0-0.2); EOSINOPHILS % (AUTO) 2.6 % (0.9-2.9); HEMATOCRIT 35.4 % (36.0-47.0); HEMOGLOBIN 11.6 g/dL (12.0-16.0); LYMPHOCYTES # (AUTO) 1.7 X10^3/uL (1.3-2.9); LYMPHOCYTES % (AUTO) 21.3 % (21.0-51.0); MEAN CORPUSCULAR HEMOGLOBIN 26.9 pg (27.0-34.0); MEAN CORPUSCULAR HGB CONC 32.7 g/dL (33.0-35.0); MEAN CORPUSCULAR VOLUME 82.3 fL (80.0-100.0); MEAN PLATELET VOLUME 7.9 fL (7.4-11.0); MONOCYTES # (AUTO) 0.8 x10^3/uL (0.3-0.8); MONOCYTES % (AUTO) 10.2 % (0.0-13.0); NEUTROPHILS % (AUTO) 64.9 % (42.0-75.0); PLATELET COUNT 200 X10^3/uL (150.0-450.0); RED BLOOD COUNT 4.29 X10^6/uL (3.5-5.4); RED CELL DISTRIBUTION WIDTH 15.3 % (11.6-16.5); WHITE BLOOD COUNT 7.8 X10^3/uL (3.6-10.0)
[2023-04-25 06:34] LABS: ALBUMIN 2.6 g/dL (3.4-5.0); ALKALINE PHOSPHATASE 55 Units/L (46-116); ASPARTATE AMINO TRANSFERASE 16 Units/L (15-37); BLOOD UREA NITROGEN 23 mg/dL (7-18); CARBON DIOXIDE 26.5 mmol/L (21-32); CHLORIDE 106 mmol/L (98-107); COR CA(FOR HYPOALB) 9.1 mg/dL (8.5-10.1); GLUCOSE 75 mg/dL (65-99); MAGNESIUM 1.5 mg/dL (2.0-2.9); POTASSIUM 3.5 mmol/L (3.5-5.1); SODIUM 141 mmol/L (136-145); TOTAL PROTEIN 5.4 g/dL (6.4-8.2); eGFR NON BLACK RACES 32 (>60)
[2023-04-25 06:52] LABS: ALANINE AMINOTRANSFERASE < 5 Units/L (12-78)
[2023-04-25] MEDS ORDERED: TYLENOL 325 MG TAB PO PRN (08:47)
[2023-04-25] MEDS: LOVENOX INJ 30 MG SYR SC SCH (08:57)
[2023-04-25] MEDS: MAG-OX TAB PO SCH ×2 (12:12→21:28)
[2023-04-25] MEDS: NS + KCL 20 MEQ/L 1,000 ML IV SCH (12:12)
[2023-04-25] MEDS: ROXICODONE TAB 5 MG PO PRN (15:32)
[2023-04-25] MEDS ORDERED: LOPRESSOR TAB 25 MG ONE (16:38)
[2023-04-25] MEDS: LOPRESSOR TAB 25 MG PO SCH ×2 (16:40→23:46)
--- NOTE | 2023-04-25 21:09 | PCM.PROG ---
Progress Note Progress Note for Day of Date of Exam: 04/25/23 Subjective Subjective: The patient is irritable today and I discussed starting her on Seroquel to see how that helps with her irritability. Her daughter is in agreement with this. Her daughter also plans on [place] [facility] [place] with her later today. The patient is beginning understand that she is no longer able to stay by herself and needs more care than what her daughter can provide her. Also see that her blood pressure is elevated so we will treat with p.o. metoprolol tartrate. Past Medical Family Social History Allergies: Allergies promethazine [From Phenergan] Allergy (Unknown, Verified 03/20/23 14:51) Comments: Phenergan Review of Systems ROS: No change since H&P Vital Signs and I&O's Vital Signs: Vital Signs Temperature 98.2 F Temperature 97.8 F Pulse Rate [Left Brachial] 101 Pulse Rate [Left Brachial] 94 Respiratory Rate 20 Respiratory Rate 20 Respiratory Rate 18 Respiratory Rate 18 Blood Pressure [Left Arm] 176/61 Blood Pressure [Left Arm] 198/99 Blood Pressure [Right Arm] 179/71 O2 Sat by Pulse Oximetry 91 O2 Sat by Pulse Oximetry 92 Intake and Output: Intake & Output 04/23/23 04/24/23 04/25/23 04/26/23 11:59 11:59 11:59 11:59 Intake Total 1559 / 1559 2387 / 2387 1331 / 1331 Balance 1559 / 1559 2387 / 2387 1331 / 1331 Physical Exam Oriented: Normal Eyes: Other (Bilateral blindness) Ear: Normal Nose: Normal Throat: Normal Respiratory: Normal Cardiovascular: Normal Auscultation: Bowel Sounds: Normal Tenderness: Normal Skin: Decreased Turgur Musculoskeletal: Normal Psychiatric: Anxiety and Agitation Mood Description: Calm Affect: Normal Speech Pattern: Clear and Inappropriate Laboratory and Diagnostics 04/25/23 05:40 04/25/23 05:40 Labs: Laboratory WBC 7.8 X10^3/uL (3.6-10.0) 04/25/23 05:40 RBC 4.29 X10^6/uL (3.5-5.4) 04/25/23 05:40 Hgb 11.6 g/dL (12.0-16.0) L 04/25/23 05:40 Hct 35.4 % (36.0-47.0) L 04/25/23 05:40 MCV 82.3 fL (80.0-100.0) 04/25/23 05:40 MCH 26.9 pg (27.0-34.0) L 04/25/23 05:40 MCHC 32.7 g/dL (33.0-35.0) L 04/25/23 05:40 RDW 15.3 % (11.6-16.5) 04/25/23 05:40 Plt Count 200 X10^3/uL (150.0-450.0) 04/25/23 05:40 MPV 7.9 fL (7.4-11.0) 04/25/23 05:40 Neut % (Auto) 64.9 % (42.0-75.0) 04/25/23 05:40 Lymph % (Auto) 21.3 % (21.0-51.0) 04/25/23 05:40 [place] % (Auto) 10.2 % (0.0-13.0) 04/25/23 05:40 Eos % (Auto) 2.6 % (0.9-2.9) 04/25/23 05:40 Baso % (Auto) 1.0 % (0.2-1.0) 04/25/23 05:40 Neut # (Auto) 5.0 x10^3/uL (2.2-4.8) H 04/25/23 05:40 Lymph # (Auto) 1.7 X10^3/uL (1.3-2.9) 04/25/23 05:40 [place] # (Auto) 0.8 x10^3/uL (0.3-0.8) 04/25/23 05:40 Eos # (Auto) 0.2 x10^3/uL (0.0-0.2) 04/25/23 05:40 Baso # (Auto) 0.1 X10^3/uL (0.0-0.1) 04/25/23 05:40 Absolute Nucleated RBC 0.1 /100WBC 04/25/23 05:40 Sodium 141 mmol/L (136-145) 04/25/23 05:40 Corrected Sodium TNP 04/25/23 05:40 Potassium 3.5 mmol/L (3.5-5.1) 04/25/23 05:40 Chloride 106 mmol/L (98-107) 04/25/23 05:40 Carbon Dioxide 26.5 mmol/L (21-32) 04/25/23 05:40 BUN 23 mg/dL (7-18) H 04/25/23 05:40 Creatinine 1.60 mg/dL (0.55-1.02) H 04/25/23 05:40 Est GFR (MDRD) Af Amer 39 (>60) L 04/25/23 05:40 Est GFR (MDRD) Non-Af 32 (>60) L 04/25/23 05:40 Glucose 75 mg/dL (65-99) 04/25/23 05:40 POC Glucose (mg/dL) 79 mg/dL (65-99) 04/25/23 19:24 Calcium 8.0 mg/dL (8.5-10.1) L 04/25/23 05:40 Corrected Calcium 9.1 mg/dL (8.5-10.1) 04/25/23 05:40 Magnesium 1.5 mg/dL (2.0-2.9) L 04/25/23 05:40 Total Bilirubin 0.40 mg/dL (0.2-1.0) 04/25/23 05:40 AST 16 Units/L (15-37) 04/25/23 05:40 ALT < 5 Units/L (12-78) L 04/25/23 05:40 Alkaline Phosphatase 55 Units/L (46-116) 04/25/23 05:40 Creatine Kinase 40 Units/L (26-192) 04/23/23 11:04 Troponin I High Sens 24.5 ng/L (4.0-60.0) 04/23/23 11:04 B-Natriuretic Peptide 124 pg/mL (0-79) H 04/23/23 11:04 Total Protein 5.4 g/dL (6.4-8.2) L 04/25/23 05:40 Albumin 2.6 g/dL (3.4-5.0) L 04/25/23 05:40 Globulin 2.8 g/dL (2.5-4.5) 04/25/23 05:40 Albumin/Globulin Ratio 0.9 Ratio (1.1-2.1) L 04/25/23 05:40 Specimen Type Clean catch urine 04/23/23 10:29 Urine Color Yellow (YELLOW) 04/23/23 10:29 Urine Appearance Slightly hazy (CLEAR) 04/23/23 10:29 Urine pH 5.0 (5.0 - 8.0) 04/23/23 10:29 Ur Specific [place] 1.020 (1.000-1.030) 04/23/23 10:29 Urine Protein 1+ (NEGATIVE) 04/23/23 10:29 Urine Glucose (UA) Negative (NEGATIVE) 04/23/23 10:29 Urine Ketones 2+ (NEGATIVE) 04/23/23 10:29 Urine Blood Negative (NEGATIVE) 04/23/23 10:29 Urine Nitrite Negative (NEGATIVE) 04/23/23 10: Urine Bilirubin Negative (NEGATIVE) 04/23/23 10:29 Urine Urobilinogen Normal (NORMAL) 04/23/23 10:29 Ur Leukocyte Esterase 2+ (NEGATIVE) 04/23/23 10:29 Urine RBC None seen /HPF (0-3) 04/23/23 10:29 Urine WBC 3-5 /HPF (0-5) 04/23/23 10:29 Ur Squamous Epith Cells Many /HPF (NEGATIVE) 04/23/23 10:29 Amorphous Sediment 1+ /HPF (NEGATIVE) 04/23/23 10:29 Urine Bacteria Negative /HPF (NEGATIVE) 04/23/23 10:29 Ur Culture Indicated? No/not indicated 04/23/23 10:29 SARS-CoV-2 (PCR) Negative (NEGATIVE) 04/23/23 11:16 Influenza Type A (PCR) Negative (NEGATIVE) 04/23/23 11:16 Influenza Type B (PCR) Negative (NEGATIVE) 04/23/23 11:16 RSV (PCR) Negative (NEGATIVE) 04/23/23 11:16 Plan (1) Adult failure to thrive: Status: Acute Plan: [place] [facility] [place]. We will try to get her in at [facility] in [place], [place]. (2) Behavioral change: Status: Acute (3) Dehydration: Status: Acute Narrative Support Text: Hydration status is improving daily. Plan: IV hydration. (4) Irritability and anger: Status: None Plan: Start the patient on Seroquel 25 mg p.o. twice daily. (5) Elevated blood pressure reading: Status: Acute Plan: I will start the patient on p.o. metoprolol tartrate 25 mg p.o. twice daily since she is having somewhat elevated blood pressure and higher than normal heart rate. Reevaluate her blood pressure tomorrow morning.
[2023-04-25] MEDS: DESYREL PO SCH (21:27)
[2023-04-25] MEDS: SEROquel TAB 25 mg PO SCH (21:27)
[2023-04-26] MEDS: NS + KCL 20 MEQ/L 1,000 ML IV SCH ×3 (02:11→15:32)
[2023-04-26 06:27] LABS: BASOPHILS # (AUTO) 0.1 X10^3/uL (0.0-0.1); EOSINOPHILS # (AUTO) 0.2 x10^3/uL (0.0-0.2); HEMOGLOBIN 12.1 g/dL (12.0-16.0); LYMPHOCYTES # (AUTO) 1.9 X10^3/uL (1.3-2.9); MEAN PLATELET VOLUME 8.2 fL (7.4-11.0)
[2023-04-26 06:32] LABS: BASOPHILS % (AUTO) 1.2 % (0.2-1.0); LYMPHOCYTES % (AUTO) 20.2 % (21.0-51.0); MEAN CORPUSCULAR HEMOGLOBIN 26.6 pg (27.0-34.0); MEAN CORPUSCULAR HGB CONC 32.7 g/dL (33.0-35.0); MEAN CORPUSCULAR VOLUME 81.5 fL (80.0-100.0); MONOCYTES # (AUTO) 0.9 x10^3/uL (0.3-0.8); MONOCYTES % (AUTO) 9.5 % (0.0-13.0); NEUTROPHILS # (AUTO) 6.3 x10^3/uL (2.2-4.8); NEUTROPHILS % (AUTO) 67.1 % (42.0-75.0); PLATELET COUNT 214 X10^3/uL (150.0-450.0); RED BLOOD COUNT 4.54 X10^6/uL (3.5-5.4); WHITE BLOOD COUNT 9.3 X10^3/uL (3.6-10.0)
[2023-04-26 06:41] LABS: ALANINE AMINOTRANSFERASE 8 Units/L (12-78); ALBUMIN 2.6 g/dL (3.4-5.0); ALKALINE PHOSPHATASE 56 Units/L (46-116); ASPARTATE AMINO TRANSFERASE 16 Units/L (15-37); BLOOD UREA NITROGEN 18 mg/dL (7-18); CARBON DIOXIDE 25.7 mmol/L (21-32); CHLORIDE 107 mmol/L (98-107); COR CA(FOR HYPOALB) 9.1 mg/dL (8.5-10.1); CREATININE 1.44 mg/dL (0.55-1.02); GLUCOSE 79 mg/dL (65-99); MAGNESIUM 1.6 mg/dL (2.0-2.9); POTASSIUM 3.9 mmol/L (3.5-5.1); SODIUM 141 mmol/L (136-145); TOTAL PROTEIN 5.6 g/dL (6.4-8.2); eGFR NON BLACK RACES 37 (>60)
[2023-04-26] MEDS: LOVENOX INJ 30 MG SYR SC SCH (08:53)
[2023-04-26] MEDS: LOPRESSOR TAB 25 MG PO SCH ×2 (08:54→22:50)
[2023-04-26] MEDS: MAG-OX TAB PO SCH ×3 (08:54→22:49)
[2023-04-26] MEDS: SEROquel TAB 25 mg PO SCH ×2 (08:54→17:27)
[2023-04-26] MEDS: LIORESAL PO SCH ×3 (08:57→22:49)
[2023-04-26] MEDS ORDERED: SEROquel TAB 25 mg PO SCH (09:00)
[2023-04-26] MEDS: MORPHINE SULFATE INJ 2 MG INJ IVP PRN (13:02)
--- NOTE | 2023-04-26 21:39 | PCM.PROG ---
Progress Note Progress Note for Day of Date of Exam: 04/26/23 Subjective Subjective: The patient is still complaining of some neck pain and discomfort. We will go ahead and order some Bactrim as she is having some muscle spasms in her neck muscles. I discussed jail placement with her this morning, and she is adamant that she does not want to go to the jail. However, she is a danger to herself staying alone as she needs full-time supervision at this time. Her daughter and son are going to go to the local cash applications clerk and try to get guardianship over her so we can facilitate the transfer to a jail. In the meantime, I see her blood pressure has worsened and is not controlled on the Lopressor 25 mg twice daily, so I will increase it to 50 mg twice daily, and I will also start her on Seroquel 25 mg p.o. twice daily for her anger and irritability. Once her children have guardianship we should be able to facilitate a transfer to a jail in an adjacent County since we do not have one here at our jail at this time. In the meantime she still remains mildly dehydrated and we are continuing to give her slow IV fluid hydration to keep from putting her into congestive heart failure given her age of [age] years old. She also continues to have some hypomagnesemia which is an electrolyte imbalance that we are trying to correct as well. Past Medical Family Social History Allergies: Allergies promethazine [From Phenergan] Allergy (Unknown, Verified 03/20/23 14:51) Comments: Phenergan Review of Systems ROS: No change since H&P Vital Signs and I&O's Intake and Output: Intake & Output 04/24/23 04/25/23 04/26/23 04/27/23 11:59 11:59 11:59 11:59 Intake Total 1559 / 1559 2387 / 2387 2614 / 2614 1003 / 1003 Balance 1559 / 1559 2387 / 2387 2614 / 2614 1003 / 1003 Physical Exam Oriented: Normal Eyes: Other (Bilateral blindness) Ear: Normal Nose: Normal Throat: Normal Respiratory: Normal Cardiovascular: Normal Auscultation: Bowel Sounds: Normal Tenderness: Normal Skin: Decreased [place]urgur Musculoskeletal: Normal Psychiatric: Anxiety and Agitation Mood Description: Calm Affect: Normal Speech Pattern: Clear and Inappropriate Laboratory and Diagnostics 04/26/23 05:35 04/26/23 05:35 Labs: Laboratory WBC 9.3 X10^3/uL (3.6-10.0) 04/26/23 05:35 RBC 4.54 X10^6/uL (3.5-5.4) 04/26/23 05:35 Hgb 12.1 g/dL (12.0-16.0) 04/26/23 05:35 Hct 37.0 % (36.0-47.0) 04/26/23 05:35 MCV 81.5 fL (80.0-100.0) 04/26/23 05:35 MCH 26.6 pg (27.0-34.0) L 04/26/23 05:35 MCHC 32.7 g/dL (33.0-35.0) L 04/26/23 05:35 RDW 15.0 % (11.6-16.5) 04/26/23 05:35 Plt Count 214 X10^3/uL (150.0-450.0) 04/26/23 05:35 MPV 8.2 fL (7.4-11.0) 04/26/23 05:35 Neut % (Auto) 67.1 % (42.0-75.0) 04/26/23 05:35 Lymph % (Auto) 20.2 % (21.0-51.0) L 04/26/23 05:35 [place] % (Auto) 9.5 % (0.0-13.0) 04/26/23 05:35 Eos % (Auto) 2.0 % (0.9-2.9) 04/26/23 05:35 Baso % (Auto) 1.2 % (0.2-1.0) H 04/26/23 05:35 Neut # (Auto) 6.3 x10^3/uL (2.2-4.8) H 04/26/23 05:35 Lymph # (Auto) 1.9 X10^3/uL (1.3-2.9) 04/26/23 05:35 [place] # (Auto) 0.9 x10^3/uL (0.3-0.8) H 04/26/23 05:35 Eos # (Auto) 0.2 x10^3/uL (0.0-0.2) 04/26/23 05:35 Baso # (Auto) 0.1 X10^3/uL (0.0-0.1) 04/26/23 05:35 Absolute Nucleated RBC 0.1 /100WBC 04/26/23 05:35 Sodium 141 mmol/L (136-145) 04/26/23 05:35 Corrected Sodium TNP 04/26/23 05:35 Potassium 3.9 mmol/L (3.5-5.1) 04/26/23 05:35 Chloride 107 mmol/L (98-107) 04/26/23 05:35 Carbon Dioxide 25.7 mmol/L (21-32) 04/26/23 05:35 BUN 18 mg/dL (7-18) 04/26/23 05:35 Creatinine 1.44 mg/dL (0.55-1.02) H 04/26/23 05:35 Est GFR (MDRD) Af Amer 44 (>60) L 04/26/23 05:35 Est GFR (MDRD) Non-Af 37 (>60) L 04/26/23 05:35 Glucose 79 mg/dL (65-99) 04/26/23 05:35 POC Glucose (mg/dL) 79 mg/dL (65-99) 04/26/23 12:02 Calcium 8.0 mg/dL (8.5-10.1) L 04/26/23 05:35 Corrected Calcium 9.1 mg/dL (8.5-10.1) 04/26/23 05:35 Magnesium 1.6 mg/dL (2.0-2.9) L 04/26/23 05:35 Total Bilirubin 0.50 mg/dL (0.2-1.0) 04/26/23 05:35 AST 16 Units/L (15-37) 04/26/23 05:35 ALT 8 Units/L (12-78) L 04/26/23 05:35 Alkaline Phosphatase 56 Units/L (46-116) 04/26/23 05:35 Creatine Kinase 40 Units/L (26-192) 04/23/23 11:04 Troponin I High Sens 24.5 ng/L (4.0-60.0) 04/23/23 11:04 B-Natriuretic Peptide 124 pg/mL (0-79) H 04/23/23 11:04 Total Protein 5.6 g/dL (6.4-8.2) L 04/26/23 05:35 Albumin 2.6 g/dL (3.4-5.0) L 04/26/23 05:35 Globulin 3.0 g/dL (2.5-4.5) 04/26/23 05:35 Albumin/Globulin Ratio 0.9 Ratio (1.1-2.1) L 04/26/23 05:35 TSH 3rd Generation 1.480 uIU/mL (0.358-3.74) 04/26/23 05:35 TSH 3rd Generation Cancelled 04/26/23 05:35 Specimen Type Clean catch urine 04/23/23 10:29 Urine Color Yellow (YELLOW) 04/23/23 10:29 Urine Appearance Slightly hazy (CLEAR) 04/23/23 10:29 Urine pH 5.0 (5.0 - 8.0) 04/23/23 10:29 Ur Specific [place] 1.020 (1.000-1.030) 04/23/23 10:29 Urine Protein 1+ (NEGATIVE) 04/23/23 10:29 Urine Glucose (UA) Negative (NEGATIVE) 04/23/23 10:29 Urine Ketones 2+ (NEGATIVE) 04/23/23 10:29 Urine Blood Negative (NEGATIVE) 04/23/23 10:29 Urine Nitrite Negative (NEGATIVE) 04/23/23 10:29 Urine Bilirubin Negative (NEGATIVE) 04/23/23 10:29 Urine Urobilinogen Normal (NORMAL) 04/23/23 10:29 Ur Leukocyte Esterase 2+ (NEGATIVE) 04/23/23 10:29 Urine RBC None seen /HPF (0-3) 04/23/23 10:29 Urine WBC 3-5 /HPF (0-5) 04/23/23 10:29 Ur Squamous Epith Cells Many /HPF (NEGATIVE) 04/23/23 10:29 Amorphous Sediment 1+ /HPF (NEGATIVE) 04/23/23 10:29 Urine Bacteria Negative /HPF (NEGATIVE) 04/23/23 10:29 Ur Culture Indicated? No/not indicated 04/23/23 10:29 SARS-CoV-2 (PCR) Negative (NEGATIVE) 04/23/23 11:16 Influenza Type A (PCR) Negative (NEGATIVE) 04/23/23 11:16 Influenza Type B (PCR) Negative (NEGATIVE) 04/23/23 11:16 RSV (PCR) Negative (NEGATIVE) 04/23/23 11:16 Plan (1) Adult failure to thrive: Status: Acute Plan: We will initiate jail placement. We will try to get her in at [facility] in [place], [place]. (2) Behavioral change: Status: Acute (3) Dehydration: Status: Acute Plan: IV hydration. (4) Irritability and anger: Status: None Plan: Start the patient on Seroquel 25 mg p.o. twice daily. (5) Elevated blood pressure reading: Status: Acute Plan: I will start the patient on p.o. metoprolol tartrate 25 mg p.o. twice daily since she is having somewhat elevated blood pressure and higher than normal heart rate. Reevaluate her blood pressure tomorrow morning. (6) Hypomagnesemia: Status: Acute Plan: Magnesium oxide 400 mg p.o. twice daily. (7) Primary hypertension: Status: Acute Plan: Patient blood pressure is not controlled on metoprolol tartrate 25 mg p.o. twice daily so I will increase it to 50 mg p.o. twice daily. Reevaluate again tomorrow morning.
[2023-04-26] MEDS: DESYREL PO SCH (22:49)
[2023-04-27] MEDS: NS + KCL 20 MEQ/L 1,000 ML IV SCH ×4 (03:03→19:00)
[2023-04-27] MEDS: LIORESAL PO SCH ×4 (05:12→22:20)
[2023-04-27] MEDS: MAG-OX TAB PO SCH ×3 (05:12→22:20)
[2023-04-27 06:38] LABS: BASOPHILS # (AUTO) 0.1 X10^3/uL (0.0-0.1); BASOPHILS % (AUTO) 1.2 % (0.2-1.0); EOSINOPHILS # (AUTO) 0.3 x10^3/uL (0.0-0.2); EOSINOPHILS % (AUTO) 3.3 % (0.9-2.9); HEMATOCRIT 35.9 % (36.0-47.0); HEMOGLOBIN 11.7 g/dL (12.0-16.0); LYMPHOCYTES # (AUTO) 1.9 X10^3/uL (1.3-2.9); LYMPHOCYTES % (AUTO) 21.6 % (21.0-51.0); MEAN CORPUSCULAR HEMOGLOBIN 26.7 pg (27.0-34.0); MEAN CORPUSCULAR HGB CONC 32.6 g/dL (33.0-35.0); MEAN CORPUSCULAR VOLUME 81.9 fL (80.0-100.0); MEAN PLATELET VOLUME 8.2 fL (7.4-11.0); MONOCYTES # (AUTO) 0.9 x10^3/uL (0.3-0.8); MONOCYTES % (AUTO) 9.9 % (0.0-13.0); NEUTROPHILS # (AUTO) 5.8 x10^3/uL (2.2-4.8); PLATELET COUNT 228 X10^3/uL (150.0-450.0); RED BLOOD COUNT 4.38 X10^6/uL (3.5-5.4); RED CELL DISTRIBUTION WIDTH 15.5 % (11.6-16.5)
[2023-04-27 06:49] LABS: ALANINE AMINOTRANSFERASE < 6 Units/L (12-78); ALBUMIN 2.5 g/dL (3.4-5.0); ALKALINE PHOSPHATASE 50 Units/L (46-116); ASPARTATE AMINO TRANSFERASE 19 Units/L (15-37); BLOOD UREA NITROGEN 21 mg/dL (7-18); CARBON DIOXIDE 24.1 mmol/L (21-32); CHLORIDE 110 mmol/L (98-107); COR CA(FOR HYPOALB) 9.2 mg/dL (8.5-10.1); CREATININE 1.35 mg/dL (0.55-1.02); GLUCOSE 67 mg/dL (65-99); MAGNESIUM 1.8 mg/dL (2.0-2.9); POTASSIUM 4.1 mmol/L (3.5-5.1); SODIUM 143 mmol/L (136-145); TOTAL PROTEIN 5.5 g/dL (6.4-8.2); eGFR NON BLACK RACES 39 (>60)
[2023-04-27] MEDS ORDERED: CONSULT PHARMACY - POTASSIUM & MAGNESIUM XX SCH (08:00)
[2023-04-27] MEDS: LOVENOX INJ 30 MG SYR SC SCH (09:34)
[2023-04-27] MEDS: LOPRESSOR TAB 25 MG PO SCH ×2 (09:40→22:19)
[2023-04-27] MEDS: SEROquel TAB 25 mg PO SCH ×2 (11:59→22:20)
--- NOTE | 2023-04-27 20:40 | PCM.PROG ---
Progress Note Progress Note for Day of Date of Exam: 04/27/23 Subjective Subjective: The patient is groggy this morning on morning rounds but she does answer questions appropriately but seems excessively sleepy. Because of this we will stop her daytime Seroquel but continue it at nighttime. Her blood pressure is still elevated and not controlled at this time. The patient has stated that she does not want to go to the longterm at all however given her home condition in which she does not have 24-hour supervision it would be dangerous for her to stay very self. I am informed today that [facility] has accepted the patient and the patient's daughter and brother are currently working on getting guardianship of her. Since we had this done we will plan on admitting her to either [facility] or the longterm in [place]. Her hydration status is still improving but she remains mildly dehydrated at this time. Past Medical Family Social History Allergies: Allergies promethazine [From Phenergan] Allergy (Unknown, Verified 03/20/23 14:51) Comments: Phenergan Review of Systems ROS: No change since H&P Vital Signs and I&O's Vital Signs: Vital Signs Temperature 97.6 F Pulse Rate [Left Brachial] 62 Respiratory Rate 20 Blood Pressure [Left Arm] 153/68 O2 Sat by Pulse Oximetry 93 Intake and Output: Intake & Output 04/25/23 04/26/23 04/27/23 04/28/23 11:59 11:59 11:59 11:59 Intake Total 2387 / 2387 2614 / 2614 2050 1003 / 1003 Balance 2387 / 2387 2614 / 2614 2050 1003 / 1003 Physical Exam Oriented: Normal Eyes: Other (Bilateral blindness) Ear: Normal Nose: Normal Throat: Normal Respiratory: Normal Cardiovascular: Normal Auscultation: Bowel Sounds: Normal Tenderness: Normal Skin: Decreased [place]urgur Musculoskeletal: Normal Psychiatric: Anxiety and Agitation Mood Description: Calm Affect: Normal Speech Pattern: Clear and Delayed Laboratory and Diagnostics 04/27/23 05:34 04/27/23 05:34 Labs: Laboratory WBC 9.0 X10^3/uL (3.6-10.0) 04/27/23 05:34 RBC 4.38 X10^6/uL (3.5-5.4) 04/27/23 05:34 Hgb 11.7 g/dL (12.0-16.0) L 04/27/23 05:34 Hct 35.9 % (36.0-47.0) L 04/27/23 05:34 MCV 81.9 fL (80.0-100.0) 04/27/23 05:34 MCH 26.7 pg (27.0-34.0) L 04/27/23 05:34 MCHC 32.6 g/dL (33.0-35.0) L 04/27/23 05:34 RDW 15.5 % (11.6-16.5) 04/27/23 05:34 Plt Count 228 X10^3/uL (150.0-450.0) 04/27/23 05:34 MPV 8.2 fL (7.4-11.0) 04/27/23 05:34 Neut % (Auto) 64.0 % (42.0-75.0) 04/27/23 05:34 Lymph % (Auto) 21.6 % (21.0-51.0) 04/27/23 05:34 [place] % (Auto) 9.9 % (0.0-13.0) 04/27/23 05:34 Eos % (Auto) 3.3 % (0.9-2.9) H 04/27/23 05:34 Baso % (Auto) 1.2 % (0.2-1.0) H 04/27/23 05:34 Neut # (Auto) 5.8 x10^3/uL (2.2-4.8) H 04/27/23 05:34 Lymph # (Auto) 1.9 X10^3/uL (1.3-2.9) 04/27/23 05:34 [place] # (Auto) 0.9 x10^3/uL (0.3-0.8) H 04/27/23 05:34 Eos # (Auto) 0.3 x10^3/uL (0.0-0.2) H 04/27/23 05:34 Baso # (Auto) 0.1 X10^3/uL (0.0-0.1) 04/27/23 05:34 Absolute Nucleated RBC 0.1 /100WBC 04/27/23 05:34 Sodium 143 mmol/L (136-145) 04/27/23 05:34 Corrected Sodium TNP 04/27/23 05:34 Potassium 4.1 mmol/L (3.5-5.1) 04/27/23 05:34 Chloride 110 mmol/L (98-107) H 04/27/23 05:34 Carbon Dioxide 24.1 mmol/L (21-32) 04/27/23 05:34 BUN 21 mg/dL (7-18) H 04/27/23 05:34 Creatinine 1.35 mg/dL (0.55-1.02) H 04/27/23 05:34 Est GFR (MDRD) Af Amer 48 (>60) L 04/27/23 05:34 Est GFR (MDRD) Non-Af 39 (>60) L 04/27/23 05:34 Glucose 67 mg/dL (65-99) 04/27/23 05:34 POC Glucose (mg/dL) 84 mg/dL (65-99) 04/27/23 19:51 Calcium 8.0 mg/dL (8.5-10.1) L 04/27/23 05:34 Corrected Calcium 9.2 mg/dL (8.5-10.1) 04/27/23 05:34 Magnesium 1.8 mg/dL (2.0-2.9) L 04/27/23 05:34 Total Bilirubin 0.40 mg/dL (0.2-1.0) 04/27/23 05:34 AST 19 Units/L (15-37) 04/27/23 05:34 ALT < 6 Units/L (12-78) L 04/27/23 05:34 Alkaline Phosphatase 50 Units/L (46-116) 04/27/23 05:34 Creatine Kinase 40 Units/L (26-192) 04/23/23 11:04 Troponin I High Sens 24.5 ng/L (4.0-60.0) 04/23/23 11:04 B-Natriuretic Peptide 124 pg/mL (0-79) H 04/23/23 11:04 Total Protein 5.5 g/dL (6.4-8.2) L 04/27/23 05:34 Albumin 2.5 g/dL (3.4-5.0) L 04/27/23 05:34 Globulin 3.0 g/dL (2.5-4.5) 04/27/23 05:34 Albumin/Globulin Ratio 0.8 Ratio (1.1-2.1) L 04/27/23 05:34 TSH 3rd Generation 1.480 uIU/mL (0.358-3.74) 04/26/23 05:35 TSH 3rd Generation Cancelled 04/26/23 05:35 Specimen Type Clean catch urine 04/23/23 10:29 Urine Color Yellow (YELLOW) 04/23/23 10:29 Urine Appearance Slightly hazy (CLEAR) 04/23/23 10:29 Urine pH 5.0 (5.0 - 8.0) 04/23/23 10:29 Ur Specific [place] 1.020 (1.000-1.030) 04/23/23 10:29 Urine Protein 1+ (NEGATIVE) 04/23/23 10:29 Urine Glucose (UA) Negative (NEGATIVE) 04/23/23 10:29 Urine Ketones 2+ (NEGATIVE) 04/23/23 10:29 Urine Blood Negative (NEGATIVE) 04/23/23 10:29 Urine Nitrite Negative (NEGATIVE) 04/23/23 10:29 Urine Bilirubin Negative (NEGATIVE) 04/23/23 10:29 Urine Urobilinogen Normal (NORMAL) 04/23/23 10:29 Ur Leukocyte Esterase 2+ (NEGATIVE) 04/23/23 10:29 Urine RBC None seen /HPF (0-3) 04/23/23 10:29 Urine WBC 3-5 /HPF (0-5) 04/23/23 10:29 Ur Squamous Epith Cells Many /HPF (NEGATIVE) 04/23/23 10:29 Amorphous Sediment 1+ /HPF (NEGATIVE) 04/23/23 10:29 Urine Bacteria Negative /HPF (NEGATIVE) 04/23/23 10:29 Ur Culture Indicated? No/not indicated 04/23/23 10:29 SARS-CoV-2 (PCR) Negative (NEGATIVE) 04/23/23 11:16 Influenza Type A (PCR) Negative (NEGATIVE) 04/23/23 11:16 Influenza Type B (PCR) Negative (NEGATIVE) 04/23/23 11:16 RSV (PCR) Negative (NEGATIVE) 04/23/23 11:16 Plan (1) Adult failure to thrive: Status: Acute Plan: The patient has been accepted to [facility]; however, the patient is not agreeable to going now. However, she is at increased risk to herself at home because of a lack of supervision because her daughter has to work. The patient's daughter and her brother are currently working on getting guardianship over the patient for us to facilitate the patient's admission to the longterm. (2) Behavioral change: Status: Acute Plan: Continue Seroquel 25 mg at bedtime but stop Seroquel 25 mg p.o. every morning because of excessive grogginess. (3) Dehydration: Status: Acute Narrative Support Text: The patient's hydration status continues to improve daily so we will continue slow IV hydration given her age. Plan: Slow IV hydration to prevent fluid overload. (4) Muscle spasms of neck: Status: Acute Plan: Continue baclofen 5 mg p.o. 3 times daily. (5) Irritability and anger: Status: None Plan: Continue Seroquel 25 mg at at bedtime. (6) Hypomagnesemia: Status: Acute Plan: Magnesium oxide 400 mg p.o. twice daily. (7) Primary hypertension: Status: Acute Plan: The patient is currently receiving metoprolol tartrate 50 mg p.o. twice daily. However, she is not controlled at this time so I will go ahead and add olmesartan 10 mg p.o. daily. (8) Elevated blood pressure reading: Status: Chronic Plan: I will start the patient on p.o. metoprolol tartrate 25 mg p.o. twice daily since she is having somewhat elevated blood pressure and higher than normal heart rate. Reevaluate her blood pressure tomorrow morning.
[2023-04-27] MEDS: DESYREL PO SCH (22:18)
[2023-04-27] MEDS: MORPHINE SULFATE INJ 2 MG INJ IVP PRN (23:45)
[2023-04-28] MEDS ORDERED: APRESOLINE INJ 20 MG VIAL IVP ONE ×2 (04:21→20:16)
[2023-04-28] MEDS ORDERED: APRESOLINE INJ 20 MG VIAL ONE (04:34)
[2023-04-28] MEDS: NS + KCL 20 MEQ/L 1,000 ML IV SCH ×2 (05:16→09:01)
[2023-04-28] MEDS: MAG-OX TAB PO SCH (05:17)
[2023-04-28] MEDS: LIORESAL PO SCH ×3 (05:17→22:23)
[2023-04-28 07:36] LABS: HEMATOCRIT 38.4 % (36.0-47.0); HEMOGLOBIN 12.5 g/dL (12.0-16.0)
[2023-04-28 07:39] LABS: BASOPHILS # (AUTO) 0.1 X10^3/uL (0.0-0.1); BASOPHILS % (AUTO) 1.3 % (0.2-1.0); EOSINOPHILS # (AUTO) 0.1 x10^3/uL (0.0-0.2); EOSINOPHILS % (AUTO) 1.2 % (0.9-2.9); LYMPHOCYTES # (AUTO) 1.7 X10^3/uL (1.3-2.9); LYMPHOCYTES % (AUTO) 16.3 % (21.0-51.0); MEAN CORPUSCULAR HEMOGLOBIN 26.9 pg (27.0-34.0); MEAN CORPUSCULAR HGB CONC 32.6 g/dL (33.0-35.0); MEAN CORPUSCULAR VOLUME 82.4 fL (80.0-100.0); MEAN PLATELET VOLUME 7.9 fL (7.4-11.0); MONOCYTES # (AUTO) 0.6 x10^3/uL (0.3-0.8); MONOCYTES % (AUTO) 5.8 % (0.0-13.0); NEUTROPHILS % (AUTO) 75.4 % (42.0-75.0); PLATELET COUNT 259 X10^3/uL (150.0-450.0); RED BLOOD COUNT 4.66 X10^6/uL (3.5-5.4); RED CELL DISTRIBUTION WIDTH 15.5 % (11.6-16.5); WHITE BLOOD COUNT 10.6 X10^3/uL (3.6-10.0)
[2023-04-28 07:48] LABS: ALANINE AMINOTRANSFERASE < 6 Units/L (12-78); ALBUMIN 2.9 g/dL (3.4-5.0); ALKALINE PHOSPHATASE 56 Units/L (46-116); ASPARTATE AMINO TRANSFERASE 19 Units/L (15-37); BLOOD UREA NITROGEN 19 mg/dL (7-18); CALCIUM 8.3 mg/dL (8.5-10.1); CARBON DIOXIDE 23.1 mmol/L (21-32); CHLORIDE 108 mmol/L (98-107); COR CA(FOR HYPOALB) 9.2 mg/dL (8.5-10.1); GLUCOSE 89 mg/dL (65-99); MAGNESIUM 1.7 mg/dL (2.0-2.9); POTASSIUM 4.1 mmol/L (3.5-5.1); SODIUM 142 mmol/L (136-145); TOTAL PROTEIN 6.1 g/dL (6.4-8.2); eGFR NON BLACK RACES 45 (>60)
[2023-04-28 08:03] LABS: BAND NEUTROPHILS % 1 % (0-10)
[2023-04-28 08:05] LABS: PLATELET MORPHOLOGY COMMENT NORMAL (NORMAL)
[2023-04-28] MEDS ORDERED: CONSULT PHARMACY - POTASSIUM & MAGNESIUM XX SCH (09:00)
[2023-04-28] MEDS ORDERED: MAG-OX TAB PO SCH (09:00)
[2023-04-28] MEDS: LOVENOX INJ 30 MG SYR SC SCH (09:01)
[2023-04-28] MEDS: LOPRESSOR TAB 25 MG PO SCH ×3 (09:05→22:21)
[2023-04-28] MEDS: BENICAR PO SCH (09:05)
[2023-04-28] MEDS: NS + KCL 20 MEQ/L 1,000 ML with MAGNESIUM SULFATE 50% INJ VIAL 1 G IV SCH ×4 (10:10→22:57)
[2023-04-28] MEDS: MORPHINE SULFATE INJ 2 MG INJ IVP PRN ×2 (14:30→23:15)
[2023-04-28] MEDS: DESYREL PO SCH ×2 (20:00→22:21)
[2023-04-28] MEDS: SEROquel TAB 25 mg PO SCH ×2 (20:01→22:22)
[2023-04-29] MEDS ORDERED: DULCOLAX SUPPOSITORY 10 MG RECTAL ONE (04:10)
[2023-04-29] MEDS: LIORESAL PO SCH ×3 (05:11→22:36)
[2023-04-29 07:04] LABS: BASOPHILS # (AUTO) 0.1 X10^3/uL (0.0-0.1); EOSINOPHILS % (AUTO) 0.2 % (0.9-2.9); HEMATOCRIT 38.1 % (36.0-47.0); HEMOGLOBIN 12.3 g/dL (12.0-16.0); LYMPHOCYTES # (AUTO) 2.1 X10^3/uL (1.3-2.9); LYMPHOCYTES % (AUTO) 17.9 % (21.0-51.0); MEAN CORPUSCULAR HEMOGLOBIN 26.7 pg (27.0-34.0); MEAN CORPUSCULAR HGB CONC 32.4 g/dL (33.0-35.0); MEAN CORPUSCULAR VOLUME 82.4 fL (80.0-100.0); MEAN PLATELET VOLUME 8.4 fL (7.4-11.0); MONOCYTES # (AUTO) 0.7 x10^3/uL (0.3-0.8); MONOCYTES % (AUTO) 5.6 % (0.0-13.0); NEUTROPHILS # (AUTO) 8.8 x10^3/uL (2.2-4.8); NEUTROPHILS % (AUTO) 75.3 % (42.0-75.0); PLATELET COUNT 136 X10^3/uL (150.0-450.0); RED BLOOD COUNT 4.62 X10^6/uL (3.5-5.4); RED CELL DISTRIBUTION WIDTH 15.3 % (11.6-16.5); WHITE BLOOD COUNT 11.6 X10^3/uL (3.6-10.0)
[2023-04-29 07:11] LABS: ALANINE AMINOTRANSFERASE 9 Units/L (12-78); ALKALINE PHOSPHATASE 53 Units/L (46-116); ASPARTATE AMINO TRANSFERASE 23 Units/L (15-37); BLOOD UREA NITROGEN 17 mg/dL (7-18); CALCIUM 8.3 mg/dL (8.5-10.1); CARBON DIOXIDE 19.9 mmol/L (21-32); CHLORIDE 108 mmol/L (98-107); COR CA(FOR HYPOALB) 9.1 mg/dL (8.5-10.1); CREATININE 1.04 mg/dL (0.55-1.02); GLUCOSE 86 mg/dL (65-99); POTASSIUM 4.3 mmol/L (3.5-5.1); SODIUM 145 mmol/L (136-145); eGFR NON BLACK RACES 53 (>60)
--- NOTE | 2023-04-29 07:36 | RAD ---
HISTORYCongestion, FTT, dehydrationSTUDYCHEST, 1 [id number] cardiomediastinal silhouette is stable given positional changes. No acute airspace disease. No pneumothorax or effusion. The bony thorax appears intact.IMPRESSIONNo acute cardiopulmonary disease.Electronically signed by: MARLEEN COLEMAN (Apr 29, 2023 07:35:27)
[2023-04-29] MEDS: BENICAR PO SCH (09:59)
[2023-04-29] MEDS: LOPRESSOR TAB 25 MG PO SCH ×2 (09:59→20:14)
[2023-04-29] MEDS: LOVENOX INJ 30 MG SYR SC SCH (09:59)
[2023-04-29] MEDS: NS + KCL 20 MEQ/L 1,000 ML with MAGNESIUM SULFATE 50% INJ VIAL 1 G IV SCH ×2 (12:21)
[2023-04-29] MEDS: DESYREL PO SCH (20:14)
[2023-04-29] MEDS: SEROquel TAB 25 mg PO SCH (20:14)
[2023-04-30] MEDS: NS + KCL 20 MEQ/L 1,000 ML with MAGNESIUM SULFATE 50% INJ VIAL 1 G IV SCH ×2 (02:35)
[2023-04-30] MEDS: LIORESAL PO SCH ×3 (05:13→22:07)
[2023-04-30 06:11] LABS: HEMOGLOBIN 12.1 g/dL (12.0-16.0); WHITE BLOOD COUNT 10.3 X10^3/uL (3.6-10.0)
[2023-04-30 06:18] LABS: BASOPHILS # (AUTO) 0.1 X10^3/uL (0.0-0.1); EOSINOPHILS # (AUTO) 0.2 x10^3/uL (0.0-0.2); EOSINOPHILS % (AUTO) 1.8 % (0.9-2.9); HEMATOCRIT 36.3 % (36.0-47.0); LYMPHOCYTES # (AUTO) 2.4 X10^3/uL (1.3-2.9); LYMPHOCYTES % (AUTO) 23.2 % (21.0-51.0); MEAN CORPUSCULAR HGB CONC 33.4 g/dL (33.0-35.0); MEAN PLATELET VOLUME 8.4 fL (7.4-11.0); MONOCYTES # (AUTO) 0.9 x10^3/uL (0.3-0.8); MONOCYTES % (AUTO) 8.6 % (0.0-13.0); NEUTROPHILS # (AUTO) 6.7 x10^3/uL (2.2-4.8); NEUTROPHILS % (AUTO) 65.4 % (42.0-75.0); PLATELET COUNT 243 X10^3/uL (150.0-450.0); RED BLOOD COUNT 4.48 X10^6/uL (3.5-5.4); RED CELL DISTRIBUTION WIDTH 15.2 % (11.6-16.5)
[2023-04-30 06:22] LABS: ALANINE AMINOTRANSFERASE 7 Units/L (12-78); ALBUMIN 2.9 g/dL (3.4-5.0); ALKALINE PHOSPHATASE 53 Units/L (46-116); ASPARTATE AMINO TRANSFERASE 20 Units/L (15-37); BLOOD UREA NITROGEN 13 mg/dL (7-18); CALCIUM 8.2 mg/dL (8.5-10.1); CARBON DIOXIDE 24.1 mmol/L (21-32); CHLORIDE 107 mmol/L (98-107); COR CA(FOR HYPOALB) 9.1 mg/dL (8.5-10.1); CREATININE 1.03 mg/dL (0.55-1.02); GLUCOSE 88 mg/dL (65-99); POTASSIUM 3.3 mmol/L (3.5-5.1); SODIUM 144 mmol/L (136-145); TOTAL PROTEIN 5.7 g/dL (6.4-8.2); eGFR NON BLACK RACES 54 (>60)
[2023-04-30] MEDS ORDERED: CONSULT PHARMACY - POTASSIUM & MAGNESIUM XX SCH ×2 (07:00)
[2023-04-30] MEDS: LOPRESSOR TAB 25 MG PO SCH ×2 (09:30→22:07)
[2023-04-30] MEDS: BENICAR PO SCH (09:30)
[2023-04-30] MEDS: LOVENOX INJ 30 MG SYR SC SCH (09:31)
[2023-04-30] MEDS: K-DUR TAB 20 MEQ PO SCH ×2 (09:34→11:07)
[2023-04-30] MEDS: NS + KCL 40 MEQ/L 1,000 ML with MAGNESIUM SULFATE 50% INJ VIAL 1 G IV SCH ×2 (11:12)
--- NOTE | 2023-04-30 21:16 | PCM.PROG ---
Progress Note Progress Note for Day of Date of Exam: 04/30/23 Subjective Subjective: Pt is an 87-year-old white female being treated for diffuse weakness, adult failure to thrive, dehydration. She has continued to gradually worsen since this admission. The patient has had increased confusion as well as decreased responsiveness. This morning she appears lethargic. The patient has episodes where she would be more awake and alert and but very brief. She does continue to refuse anything, food, limited medicine intake. With prior discussions with her primary care and physician covering over the weekend it was discussed that hospice may be an appropriate option due to the deterioration of patient's status. This morning it was discussed with family about available op tions and they have agreed that hospice is in the patient's best interest due to her continued decline. Labs: WBC 10.3, hemoglobin 12.1, platelets 243, sodium 144, potassium 3.3, creatinine 1.03, glucose 88. Case management will contact with palliative/hospice care. Otherwise we will continue with current treatment plan. Continue to monitor patient. Past Medical Family Social History Allergies: Allergies promethazine [From Phenergan] Allergy (Unknown, Verified 03/20/23 14:51) Comments: Phenergan Review of Systems ROS: No change since H&P Vital Signs and I&O's Vital Signs: Vital Signs Temperature 98.0 F Pulse Rate [Left Brachial] 86 Respiratory Rate 18 Blood Pressure [Left Arm] 130/85 O2 Sat by Pulse Oximetry 93 Intake and Output: Intake & Output 04/27/23 04/28/23 04/29/23 04/30/23 23:59 23:59 23:59 23:59 Intake Total 2141 / 2141 2243 / 2243 945 / 945 142 / 142 Balance 2141 / 2141 2243 / 2243 945 / 945 142 / 142 Physical Exam Oriented: Normal Eyes: Other (Bilateral blindness) Ear: Normal Nose: Normal Throat: Normal Respiratory: Normal Cardiovascular: Normal Auscultation: Bowel Sounds: Normal Tenderness: Normal Skin: Decreased Turgur Musculoskeletal: Normal Psychiatric: Anxiety and Agitation Mood Description: Calm Affect: Normal Speech Pattern: Clear and Delayed Laboratory and Diagnostics 04/30/23 05:42 04/30/23 05:42 Labs: Laboratory WBC 10.3 X10^3/uL (3.6-10.0) H 04/30/23 05:42 RBC 4.48 X10^6/uL (3.5-5.4) 04/30/23 05:42 Hgb 12.1 g/dL (12.0-16.0) 04/30/23 05:42 Hct 36.3 % (36.0-47.0) 04/30/23 05:42 MCV 81.0 fL (80.0-100.0) 04/30/23 05:42 MCH 27.0 pg (27.0-34.0) 04/30/23 05:42 MCHC 33.4 g/dL (33.0-35.0) 04/30/23 05:42 RDW 15.2 % (11.6-16.5) 04/30/23 05:42 Plt Count 243 X10^3/uL (150.0-450.0) 04/30/23 05:42 Plt Count Comment Adequate (ADEQUATE) 04/28/23 07:25 MPV 8.4 fL (7.4-11.0) 04/30/23 05:42 Neut % (Auto) 65.4 % (42.0-75.0) 04/30/23 05:42 Lymph % (Auto) 23.2 % (21.0-51.0) 04/30/23 05:42 [place] % (Auto) 8.6 % (0.0-13.0) 04/30/23 05:42 Eos % (Auto) 1.8 % (0.9-2.9) 04/30/23 05:42 Baso % (Auto) 1.0 % (0.2-1.0) 04/30/23 05:42 Neut # (Auto) 6.7 x10^3/uL (2.2-4.8) H 04/30/23 05:42 Lymph # (Auto) 2.4 X10^3/uL (1.3-2.9) 04/30/23 05:42 [place] # (Auto) 0.9 x10^3/uL (0.3-0.8) H 04/30/23 05:42 Eos # (Auto) 0.2 x10^3/uL (0.0-0.2) 04/30/23 05:42 Baso # (Auto) 0.1 X10^3/uL (0.0-0.1) 04/30/23 05:42 Absolute Nucleated RBC 0.0 /100WBC 04/30/23 05:42 Total Counted 100 04/28/23 07:25 Neutrophils % (Manual) 77 % (39-76) H 04/28/23 07:25 Band Neutrophils % 1 % (0-10) 04/28/23 07:25 Lymphocytes % (Manual) 16 % (13-43) 04/28/23 07:25 Monocytes % (Manual) 4 % (4-9) 04/28/23 07:25 Eosinophils % (Manual) 2 % (0-6) 04/28/23 07:25 Plt Morphology Comment Normal (NORMAL) 04/28/23 07:25 RBC Morphology Normal (NORMAL) 04/28/23 07:25 Sodium 144 mmol/L (136-145) 04/30/23 05:42 Corrected Sodium TNP 04/30/23 05:42 Potassium 3.3 mmol/L (3.5-5.1) L 04/30/23 05:42 Chloride 107 mmol/L (98-107) 04/30/23 05:42 Carbon Dioxide 24.1 mmol/L (21-32) 04/30/23 05:42 BUN 13 mg/dL (7-18) 04/30/23 05:42 Creatinine 1.03 mg/dL (0.55-1.02) H 04/30/23 05:42 Est GFR (MDRD) Af Amer > 60 (>60) 04/30/23 05:42 Est GFR (MDRD) Non-Af 54 (>60) L 04/30/23 05:42 Glucose 88 mg/dL (65-99) 04/30/23 05:42 POC Glucose (mg/dL) 85 mg/dL (65-99) 04/30/23 17:23 Calcium 8.2 mg/dL (8.5-10.1) L 04/30/23 05:42 Corrected Calcium 9.1 mg/dL (8.5-10.1) 04/30/23 05:42 Magnesium 2.0 mg/dL (2.0-2.9) 04/29/23 05:51 Total Bilirubin 0.50 mg/dL (0.2-1.0) 04/30/23 05:42 AST 20 Units/L (15-37) 04/30/23 05:42 ALT 7 Units/L (12-78) L 04/30/23 05:42 Alkaline Phosphatase 53 Units/L (46-116) 04/30/23 05:42 Creatine Kinase 40 Units/L (26-192) 04/23/23 11:04 Troponin I High Sens 24.5 ng/L (4.0-60.0) 04/23/23 11:04 B-Natriuretic Peptide 124 pg/mL (0-79) H 04/23/23 11:04 Total Protein 5.7 g/dL (6.4-8.2) L 04/30/23 05:42 Albumin 2.9 g/dL (3.4-5.0) L 04/30/23 05:42 Globulin 2.8 g/dL (2.5-4.5) 04/30/23 05:42 Albumin/Globulin Ratio 1.0 Ratio (1.1-2.1) L 04/30/23 05:42 TSH 3rd Generation 1.480 uIU/mL (0.358-3.74) 04/26/23 05:35 TSH 3rd Generation Cancelled 04/26/23 05:35 Specimen Type Clean catch urine 04/23/23 10:29 Urine Color Yellow (YELLOW) 04/23/23 10:29 Urine Appearance Slightly hazy (CLEAR) 04/23/23 10:29 Urine pH 5.0 (5.0 - 8.0) 04/23/23 10:29 Ur Specific [place] 1.020 (1.000-1.030) 04/23/23 10:29 Urine Protein 1+ (NEGATIVE) 04/23/23 10:29 Urine Glucose (UA) Negative (NEGATIVE) 04/23/23 10:29 Urine Ketones 2+ (NEGATIVE) 04/23/23 10:29 Urine Blood Negative (NEGATIVE) 04/23/23 10:29 Urine Nitrite Negative (NEGATIVE) 04/23/23 10:29 Urine Bilirubin Negative (NEGATIVE) 04/23/23 10:29 Urine Urobilinogen Normal (NORMAL) 04/23/23 10:29 Ur Leukocyte Esterase 2+ (NEGATIVE) 04/23/23 10:29 Urine RBC None seen /HPF (0-3) 04/23/23 10:29 Urine WBC 3-5 /HPF (0-5) 04/23/23 10:29 Ur Squamous Epith Cells Many /HPF (NEGATIVE) 04/23/23 10:29 Amorphous Sediment 1+ /HPF (NEGATIVE) 04/23/23 10:29 Urine Bacteria Negative /HPF (NEGATIVE) 04/23/23 10:29 Ur Culture Indicated? No/not indicated 04/23/23 10:29 SARS-CoV-2 (PCR) Negative (NEGATIVE) 04/23/23 11:16 Influenza Type A (PCR) Negative (NEGATIVE) 04/23/23 11:16 Influenza Type B (PCR) Negative (NEGATIVE) 04/23/23 11:16 RSV (PCR) Negative (NEGATIVE) 04/23/23 11:16 Plan (1) Adult failure to thrive: Status: Acute (2) Behavioral change: Status: Acute Plan: Continue Seroquel 25 mg at bedtime but stop Seroquel 25 mg p.o. every morning because of excessive grogginess. (3) Dehydration: Status: Acute Plan: Slow IV hydration to prevent fluid overload. (4) Muscle spasms of neck: Status: Acute Plan: Continue baclofen 5 mg p.o. 3 times daily. (5) Irritability and anger: Status: None Plan: Continue Seroquel 25 mg at at bedtime. (6) Hypomagnesemia: Status: Acute Plan: Magnesium oxide 400 mg p.o. twice daily. (7) Primary hypertension: Status: Acute Plan: The patient is currently receiving metoprolol tartrate 50 mg p.o. twice daily, olmesartan 10 mg p.o. daily. (8) Elevated blood pressure reading: Status: Chronic
[2023-04-30] MEDS: DESYREL PO SCH (22:07)
[2023-04-30] MEDS: SEROquel TAB 25 mg PO SCH (22:07)
[2023-05-01] MEDS: NS + KCL 40 MEQ/L 1,000 ML with MAGNESIUM SULFATE 50% INJ VIAL 1 G IV SCH ×8 (01:01→16:19)
[2023-05-01] MEDS: LIORESAL PO SCH ×3 (05:37→22:35)
[2023-05-01 06:24] LABS: BASOPHILS # (AUTO) 0.1 X10^3/uL (0.0-0.1); EOSINOPHILS # (AUTO) 0.1 x10^3/uL (0.0-0.2); EOSINOPHILS % (AUTO) 0.7 % (0.9-2.9); HEMATOCRIT 36.2 % (36.0-47.0); HEMOGLOBIN 11.9 g/dL (12.0-16.0); LYMPHOCYTES # (AUTO) 1.8 X10^3/uL (1.3-2.9); MEAN CORPUSCULAR HEMOGLOBIN 26.8 pg (27.0-34.0); MEAN CORPUSCULAR HGB CONC 32.8 g/dL (33.0-35.0); MEAN CORPUSCULAR VOLUME 81.5 fL (80.0-100.0); MEAN PLATELET VOLUME 8.9 fL (7.4-11.0); MONOCYTES # (AUTO) 0.6 x10^3/uL (0.3-0.8); MONOCYTES % (AUTO) 6.3 % (0.0-13.0); NEUTROPHILS # (AUTO) 6.3 x10^3/uL (2.2-4.8); PLATELET COUNT 221 X10^3/uL (150.0-450.0); RED BLOOD COUNT 4.44 X10^6/uL (3.5-5.4); RED CELL DISTRIBUTION WIDTH 15.3 % (11.6-16.5); WHITE BLOOD COUNT 8.8 X10^3/uL (3.6-10.0)
[2023-05-01 06:49] LABS: ALANINE AMINOTRANSFERASE < 6 Units/L (12-78); ALBUMIN 2.5 g/dL (3.4-5.0); ALKALINE PHOSPHATASE 45 Units/L (46-116); ASPARTATE AMINO TRANSFERASE 20 Units/L (15-37); BLOOD UREA NITROGEN 12 mg/dL (7-18); CALCIUM 8.1 mg/dL (8.5-10.1); CARBON DIOXIDE 22.2 mmol/L (21-32); CHLORIDE 110 mmol/L (98-107); COR CA(FOR HYPOALB) 9.3 mg/dL (8.5-10.1); CREATININE 0.97 mg/dL (0.55-1.02); GLUCOSE 84 mg/dL (65-99); POTASSIUM 4.3 mmol/L (3.5-5.1); SODIUM 145 mmol/L (136-145); TOTAL PROTEIN 5.2 g/dL (6.4-8.2); eGFR NON BLACK RACES 58 (>60)
[2023-05-01] MEDS: MORPHINE SULFATE INJ 2 MG INJ IVP PRN (09:50)
[2023-05-01] MEDS: LOVENOX INJ 30 MG SYR SC SCH (10:26)
[2023-05-01] MEDS: BENICAR PO SCH (10:26)
[2023-05-01] MEDS: LOPRESSOR TAB 25 MG PO SCH ×2 (10:27→20:54)
--- NOTE | 2023-05-01 10:52 | MRI ---
HISTORYams, confusion, weaknessSTUDYBRAIN W/O CONCOMPARISONCT head from 03/22/2023.TECHNIQUEMultiplanar multi-sequence MRI of the brain was obtained utilizing standard departmental protocol. Sagittal and axial T1 weighted images were obtained. Axial T2 and flair weighted images were performed as well. Axial diffusion weighted and ADC trace mapping was performed.FINDINGSMild motion artifact.Diffusion imaging: [Normal, no acute infarct.]Susceptibility weighted imaging: [Punctate susceptibility artifact in the right basal ganglia image [address] for benign mineralization.]Brain volume: [Appropriate for age.]Ventricles and basal cisterns: [Normal for age.]Extra-axial spaces: [No extra-axial collection.]Cerebral parynchema: [No mass, hematoma, or mass effect.] Moderate amount of T2 and Flair hyperintensities in the supratentorial subcortical and deep white matter.Pituitary and other sagittal midline structures: [Normal.]Visualized orbits: [Normal.]Paranasal sinuses and mastoid air cells: [Mild right mastoid air cell fluid.]Bones: [Intact.]Other: [None.]IMPRESSION[No abnormal restricted diffusion acute infarct chronic small vessel disease.]Moderate chronic small vessel disease.Electronically signed by: Renan Vargas (May 01, 2023 10:51:10)
[2023-05-01] MEDS: DESYREL PO SCH (20:53)
[2023-05-01] MEDS: SEROquel TAB 25 mg PO SCH (20:53)
[2023-05-02] MEDS: NS + KCL 40 MEQ/L 1,000 ML with MAGNESIUM SULFATE 50% INJ VIAL 1 G IV SCH ×2
[2023-05-02] MEDS: LIORESAL PO SCH ×2 (05:49→06:16)
[2023-05-02 06:09] LABS: ALANINE AMINOTRANSFERASE 7 Units/L (12-78); ALBUMIN 2.9 g/dL (3.4-5.0); ALKALINE PHOSPHATASE 53 Units/L (46-116); ASPARTATE AMINO TRANSFERASE 12 Units/L (15-37); BLOOD UREA NITROGEN 15 mg/dL (7-18); CALCIUM 8.2 mg/dL (8.5-10.1); CARBON DIOXIDE 21.7 mmol/L (21-32); CHLORIDE 112 mmol/L (98-107); COR CA(FOR HYPOALB) 9.1 mg/dL (8.5-10.1); GLUCOSE 90 mg/dL (65-99); POTASSIUM 4.7 mmol/L (3.5-5.1); SODIUM 147 mmol/L (136-145); TOTAL PROTEIN 5.9 g/dL (6.4-8.2); eGFR NON BLACK RACES 50 (>60)
[2023-05-02 06:19] LABS: BASOPHILS # (AUTO) 0.1 X10^3/uL (0.0-0.1); BASOPHILS % (AUTO) 0.9 % (0.2-1.0); EOSINOPHILS % (AUTO) 0.3 % (0.9-2.9); HEMATOCRIT 37.3 % (36.0-47.0); LYMPHOCYTES # (AUTO) 1.5 X10^3/uL (1.3-2.9); LYMPHOCYTES % (AUTO) 10.4 % (21.0-51.0); MEAN CORPUSCULAR HEMOGLOBIN 26.4 pg (27.0-34.0); MEAN CORPUSCULAR HGB CONC 32.2 g/dL (33.0-35.0); MEAN PLATELET VOLUME 8.9 fL (7.4-11.0); MONOCYTES # (AUTO) 0.7 x10^3/uL (0.3-0.8); MONOCYTES % (AUTO) 4.8 % (0.0-13.0); NEUTROPHILS # (AUTO) 11.7 x10^3/uL (2.2-4.8); NEUTROPHILS % (AUTO) 83.6 % (42.0-75.0); PLATELET COUNT 259 X10^3/uL (150.0-450.0); RED BLOOD COUNT 4.55 X10^6/uL (3.5-5.4); RED CELL DISTRIBUTION WIDTH 15.9 % (11.6-16.5)
--- NOTE | 2023-05-02 08:35 | PCM.PROG ---
Progress Note Progress Note for Day of Date of Exam: 05/01/23 Subjective Subjective: Pt is an 87-year-old white female being treated for diffuse weakness, adult failure to thrive, dehydration. Pt has continued to gradually worsen since this admission. The patient has had increased confusion as well as decreased responsiveness. This morning she remains lethargic with altered mental status. She does continue to refuse anything, food, limited medicine intake. Discussions with family, hospice may be an appropriate option due to the deterioration of patient's status, family is in agreement and will work with case management. Labs: WBC 8.8, hemoglobin 11.9, platelets 221, sodium 145, potassium 4.3, creatinine 0.97, glucose 84. Case management will contact with palliative/hospice care. Will get MRI of brain due to altered mental status. Otherwise we will continue with current treatment plan. Continue to monitor patient. Past Medical Family Social History Allergies: Allergies promethazine [From Phenergan] Allergy (Unknown, Verified 03/20/23 14:51) Comments: Phenergan Review of Systems ROS: No change since H&P Vital Signs and I&O's Vital Signs: Vital Signs Temperature 97.7 F Pulse Rate [Left Brachial] 71 Respiratory Rate 18 Blood Pressure [Left Arm] 108/78 O2 Sat by Pulse Oximetry 95 Intake and Output: Intake & Output 04/29/23 04/30/23 05/01/23 05/02/23 23:59 23:59 23:59 23:59 Intake Total 945 / 945 1402 / 1402 1366 1077 / 1077 Balance 945 / 945 1402 / 1402 1366 / 1966 1077 / 1077 Physical Exam Oriented: Normal Eyes: Other (Bilateral blindness) Ear: Normal Nose: Normal Throat: Normal Respiratory: Normal Cardiovascular: Normal Auscultation: Bowel Sounds: Normal Tenderness: Normal Skin: Decreased Turgur Musculoskeletal: Normal Psychiatric: Anxiety and Agitation Mood Description: Calm Affect: Normal Laboratory and Diagnostics 05/02/23 05:33 05/02/23 05:33 Labs: Laboratory WBC 14.0 X10^3/uL (3.6-10.0) H 05/02/23 05:33 RBC 4.55 X10^6/uL (3.5-5.4) 05/02/23 05:33 Hgb 12.0 g/dL (12.0-16.0) 05/02/23 05:33 Hct 37.3 % (36.0-47.0) 05/02/23 05:33 MCV 82.0 fL (80.0-100.0) 05/02/23 05:33 MCH 26.4 pg (27.0-34.0) L 05/02/23 05:33 MCHC 32.2 g/dL (33.0-35.0) L 05/02/23 05:33 RDW 15.9 % (11.6-16.5) 05/02/23 05:33 Plt Count 259 X10^3/uL (150.0-450.0) 05/02/23 05:33 Plt Count Comment Adequate (ADEQUATE) 04/28/23 07:25 MPV 8.9 fL (7.4-11.0) 05/02/23 05:33 Neut % (Auto) 83.6 % (42.0-75.0) H 05/02/23 05:33 Lymph % (Auto) 10.4 % (21.0-51.0) L 05/02/23 05:33 [place] % (Auto) 4.8 % (0.0-13.0) 05/02/23 05:33 Eos % (Auto) 0.3 % (0.9-2.9) L 05/02/23 05:33 Baso % (Auto) 0.9 % (0.2-1.0) 05/02/23 05:33 Neut # (Auto) 11.7 x10^3/uL (2.2-4.8) H 05/02/23 05:33 Lymph # (Auto) 1.5 X10^3/uL (1.3-2.9) 05/02/23 05:33 [place] # (Auto) 0.7 x10^3/uL (0.3-0.8) 05/02/23 05:33 Eos # (Auto) 0.0 x10^3/uL (0.0-0.2) 05/02/23 05:33 Baso # (Auto) 0.1 X10^3/uL (0.0-0.1) 05/02/23 05:33 Absolute Nucleated RBC 0.0 /100WBC 05/02/23 05:33 Total Counted 100 04/28/23 07:25 Neutrophils % (Manual) 77 % (39-76) H 04/28/23 07:25 Band Neutrophils % 1 % (0-10) 04/28/23 07:25 Lymphocytes % (Manual) 16 % (13-43) 04/28/23 07:25 Monocytes % (Manual) 4 % (4-9) 04/28/23 07:25 Eosinophils % (Manual) 2 % (0-6) 04/28/23 07:25 Plt Morphology Comment Normal (NORMAL) 04/28/23 07:25 RBC Morphology Normal (NORMAL) 04/28/23 07:25 Sodium 147 mmol/L (136-145) H 05/02/23 05:33 Corrected Sodium TNP 05/02/23 05:33 Potassium 4.7 mmol/L (3.5-5.1) 05/02/23 05:33 Chloride 112 mmol/L (98-107) H 05/02/23 05:33 Carbon Dioxide 21.7 mmol/L (21-32) 05/02/23 05:33 BUN 15 mg/dL (7-18) 05/02/23 05:33 Creatinine 1.10 mg/dL (0.55-1.02) H 05/02/23 05:33 Est GFR (MDRD) Af Amer > 60 (>60) 05/02/23 05:33 Est GFR (MDRD) Non-Af 50 (>60) L 05/02/23 05:33 Glucose 90 mg/dL (65-99) 05/02/23 05:33 POC Glucose (mg/dL) 82 mg/dL (65-99) 05/02/23 05:19 Calcium 8.2 mg/dL (8.5-10.1) L 05/02/23 05:33 Corrected Calcium 9.1 mg/dL (8.5-10.1) 05/02/23 05:33 Magnesium 2.0 mg/dL (2.0-2.9) 04/29/23 05:51 Total Bilirubin 0.60 mg/dL (0.2-1.0) 05/02/23 05:33 AST 12 Units/L (15-37) L 05/02/23 05:33 ALT 7 Units/L (12-78) L 05/02/23 05:33 Alkaline Phosphatase 53 Units/L (46-116) 05/02/23 05:33 Creatine Kinase 40 Units/L (26-192) 04/23/23 11:04 Troponin I High Sens 24.5 ng/L (4.0-60.0) 04/23/23 11:04 B-Natriuretic Peptide 124 pg/mL (0-79) H 04/23/23 11:04 Total Protein 5.9 g/dL (6.4-8.2) L 05/02/23 05:33 Albumin 2.9 g/dL (3.4-5.0) L 05/02/23 05:33 Globulin 3.0 g/dL (2.5-4.5) 05/02/23 05:33 Albumin/Globulin Ratio 1.0 Ratio (1.1-2.1) L 05/02/23 05:33 TSH 3rd Generation 1.480 uIU/mL (0.358-3.74) 04/26/23 05:35 TSH 3rd Generation Cancelled 04/26/23 05:35 Specimen Type Clean catch urine 04/23/23 10:29 Urine Color Yellow (YELLOW) 04/23/23 10:29 Urine Appearance Slightly hazy (CLEAR) 04/23/23 10:29 Urine pH 5.0 (5.0 - 8.0) 04/23/23 10:29 Ur Specific [place] 1.020 (1.000-1.030) 04/23/23 10:29 Urine Protein 1+ (NEGATIVE) 04/23/23 10:29 Urine Glucose (UA) Negative (NEGATIVE) 04/23/23 10:29 Urine Ketones 2+ (NEGATIVE) 04/23/23 10:29 Urine Blood Negative (NEGATIVE) 04/23/23 10:29 Urine Nitrite Negative (NEGATIVE) 04/23/23 10:29 Urine Bilirubin Negative (NEGATIVE) 04/23/23 10:29 Urine Urobilinogen Normal (NORMAL) 04/23/23 10:29 Ur Leukocyte Esterase 2+ (NEGATIVE) 04/23/23 10:29 Urine RBC None seen /HPF (0-3) 04/23/23 10:29 Urine WBC 3-5 /HPF (0-5) 04/23/23 10:29 Ur Squamous Epith Cells Many /HPF (NEGATIVE) 04/23/23 10:29 Amorphous Sediment 1+ /HPF (NEGATIVE) 04/23/23 10:29 Urine Bacteria Negative /HPF (NEGATIVE) 04/23/23 10:29 Ur Culture Indicated? No/not indicated 04/23/23 10:29 SARS-CoV-2 (PCR) Negative (NEGATIVE) 04/23/23 11:16 Influenza Type A (PCR) Negative (NEGATIVE) 04/23/23 11:16 Influenza Type B (PCR) Negative (NEGATIVE) 04/23/23 11:16 RSV (PCR) Negative (NEGATIVE) 04/23/23 11:16 Plan (1) Adult failure to thrive: Status: Acute Plan: Hospice/palliative care to evaluate. If not accepted, family will consider longterm placement. (2) Behavioral change: Status: Acute Plan: Continue Seroquel 25 mg at bedtime but stop Seroquel 25 mg p.o. every morning because of excessive grogginess. (3) Dehydration: Status: Acute Plan: Slow IV hydration to prevent fluid overload. (4) Muscle spasms of neck: Status: Acute Plan: Continue baclofen 5 mg p.o. 3 times daily. (5) Irritability and anger: Status: None Plan: Continue Seroquel 25 mg at at bedtime. (6) Hypomagnesemia: Status: Acute Plan: Magnesium oxide 400 mg p.o. twice daily. (7) Primary hypertension: Status: Acute Plan: The patient is currently receiving metoprolol tartrate 50 mg p.o. twice daily, olmesartan 10 mg p.o. daily. (8) Elevated blood pressure reading: Status: Chronic Plan: I will start the patient on p.o. metoprolol tartrate 25 mg p.o. twice daily since she is having somewhat elevated blood pressure and higher than normal heart rate. Reevaluate her blood pressure tomorrow morning.
[2023-05-02] MEDS ORDERED: VALIUM INJ IVP PRN (08:42)
--- NOTE | 2023-05-02 11:38 | PCM.PROG ---
Progress Note Progress Note for Day of Date of Exam: 05/02/23 Subjective Subjective: This morning I discussed hospice with the family and thus what they have agreed to do. They want to either take her home on hospice or even try to get her into inpatient hospice. The patient continues to get worse daily and this morning she is resting and not conversing at this time. Overall her prognosis is poor and the family has decided to stop IV fluid and all oral medication which she has not been taking for the last few days anyway. We will add IV morphine sulfate, Valium and started on Duragesic patch for comfort measures. Past Medical Family Social History Allergies: Allergies promethazine [From Phenergan] Allergy (Unknown, Verified 03/20/23 14:51) Comments: Phenergan Review of Systems ROS: No change since H&P Vital Signs and I&O's Vital Signs: Vital Signs Temperature 99.2 F Temperature 97.7 F Pulse Rate [Left Brachial] 50 Pulse Rate [Left Brachial] 71 Respiratory Rate 20 Respiratory Rate 18 Blood Pressure [Left Arm] 120/59 Blood Pressure [Left Arm] 108/78 O2 Sat by Pulse Oximetry 96 O2 Sat by Pulse Oximetry 95 Intake and Output: Intake & Output 04/29/23 04/30/23 05/01/23 05/02/23 11:59 11:59 11:59 11:59 Intake Total 1537 / 1537 1027 / 1027 1882 / 188 1822 / 182 Balance 1537 / 1537 1027 / 1027 188 / 188 182 / 182 Physical Exam Oriented: Normal Eyes: Other (Bilateral blindness) Ear: Normal Nose: Normal Throat: Normal Respiratory: Normal Cardiovascular: Normal Auscultation: Bowel Sounds: Normal Tenderness: Normal Skin: Decreased Turgur Musculoskeletal: Normal Psychiatric: Anxiety and Agitation Mood Description: Calm Affect: Normal Speech Pattern: Clear and Delayed Laboratory and Diagnostics 05/02/23 05:33 05/02/23 05:33 Labs: Laboratory WBC 14.0 X10^3/uL (3.6-10.0) H 05/02/23 05:33 RBC 4.55 X10^6/uL (3.5-5.4) 05/02/23 05:33 Hgb 12.0 g/dL (12.0-16.0) 05/02/23 05:33 Hct 37.3 % (36.0-47.0) 05/02/23 05:33 MCV 82.0 fL (80.0-100.0) 05/02/23 05:33 MCH 26.4 pg (27.0-34.0) L 05/02/23 05:33 MCHC 32.2 g/dL (33.0-35.0) L 05/02/23 05:33 RDW 15.9 % (11.6-16.5) 05/02/23 05:33 Plt Count 259 X10^3/uL (150.0-450.0) 05/02/23 05:33 Plt Count Comment Adequate (ADEQUATE) 04/28/23 07:25 MPV 8.9 fL (7.4-11.0) 05/02/23 05:33 Neut % (Auto) 83.6 % (42.0-75.0) H 05/02/23 05:33 Lymph % (Auto) 10.4 % (21.0-51.0) L 05/02/23 05:33 [place] % (Auto) 4.8 % (0.0-13.0) 05/02/23 05:33 Eos % (Auto) 0.3 % (0.9-2.9) L 05/02/23 05:33 Baso % (Auto) 0.9 % (0.2-1.0) 05/02/23 05:33 Neut # (Auto) 11.7 x10^3/uL (2.2-4.8) H 05/02/23 05:33 Lymph # (Auto) 1.5 X10^3/uL (1.3-2.9) 05/02/23 05:33 [place] # (Auto) 0.7 x10^3/uL (0.3-0.8) 05/02/23 05:33 Eos # (Auto) 0.0 x10^3/uL (0.0-0.2) 05/02/23 05:33 Baso # (Auto) 0.1 X10^3/uL (0.0-0.1) 05/02/23 05:33 Absolute Nucleated RBC 0.0 /100WBC 05/02/23 05:33 Total Counted 100 04/28/23 07:25 Neutrophils % (Manual) 77 % (39-76) H 04/28/23 07:25 Band Neutrophils % 1 % (0-10) 04/28/23 07:25 Lymphocytes % (Manual) 16 % (13-43) 04/28/23 07:25 Monocytes % (Manual) 4 % (4-9) 04/28/23 07:25 Eosinophils % (Manual) 2 % (0-6) 04/28/23 07:25 Plt Morphology Comment Normal (NORMAL) 04/28/23 07:25 RBC Morphology Normal (NORMAL) 04/28/23 07:25 Sodium 147 mmol/L (136-145) H 05/02/23 05:33 Corrected Sodium TNP 05/02/23 05:33 Potassium 4.7 mmol/L (3.5-5.1) 05/02/23 05:33 Chloride 112 mmol/L (98-107) H 05/02/23 05:33 Carbon Dioxide 21.7 mmol/L (21-32) 05/02/23 05:33 BUN 15 mg/dL (7-18) 05/02/23 05:33 Creatinine 1.10 mg/dL (0.55-1.02) H 05/02/23 05:33 Est GFR (MDRD) Af Amer > 60 (>60) 05/02/23 05:33 Est GFR (MDRD) Non-Af 50 (>60) L 05/02/23 05:33 Glucose 90 mg/dL (65-99) 05/02/23 05:33 POC Glucose (mg/dL) 82 mg/dL (65-99) 05/02/23 05:19 Calcium 8.2 mg/dL (8.5-10.1) L 05/02/23 05:33 Corrected Calcium 9.1 mg/dL (8.5-10.1) 05/02/23 05:33 Magnesium 2.0 mg/dL (2.0-2.9) 04/29/23 05:51 Total Bilirubin 0.60 mg/dL (0.2-1.0) 05/02/23 05:33 AST 12 Units/L (15-37) L 05/02/23 05:33 ALT 7 Units/L (12-78) L 05/02/23 05:33 Alkaline Phosphatase 53 Units/L (46-116) 05/02/23 05:33 Creatine Kinase 40 Units/L (26-192) 04/23/23 11:04 Troponin I High Sens 24.5 ng/L (4.0-60.0) 04/23/23 11:04 B-Natriuretic Peptide 124 pg/mL (0-79) H 04/23/23 11:04 Total Protein 5.9 g/dL (6.4-8.2) L 05/02/23 05:33 Albumin 2.9 g/dL (3.4-5.0) L 05/02/23 05:33 Globulin 3.0 g/dL (2.5-4.5) 05/02/23 05:33 Albumin/Globulin Ratio 1.0 Ratio (1.1-2.1) L 05/02/23 05:33 TSH 3rd Generation 1.480 uIU/mL (0.358-3.74) 04/26/23 05:35 TSH 3rd Generation Cancelled 04/26/23 05:35 Specimen Type Clean catch urine 04/23/23 10:29 Urine Color Yellow (YELLOW) 04/23/23 10:29 Urine Appearance Slightly hazy (CLEAR) 04/23/23 10:29 Urine pH 5.0 (5.0 - 8.0) 04/23/23 10:29 Ur Specific [place] 1.020 (1.000-1.030) 04/23/23 10:29 Urine Protein 1+ (NEGATIVE) 04/23/23 10:29 Urine Glucose (UA) Negative (NEGATIVE) 04/23/23 10:29 Urine Ketones 2+ (NEGATIVE) 04/23/23 10:29 Urine Blood Negative (NEGATIVE) 04/23/23 10:29 Urine Nitrite Negative (NEGATIVE) 04/23/23 10:29 Urine Bilirubin Negative (NEGATIVE) 04/23/23 10:29 Urine Urobilinogen Normal (NORMAL) 04/23/23 10:29 Ur Leukocyte Esterase 2+ (NEGATIVE) 04/23/23 10:29 Urine RBC None seen /HPF (0-3) 04/23/23 10:29 Urine WBC 3-5 /HPF (0-5) 04/23/23 10:29 Ur Squamous Epith Cells Many /HPF (NEGATIVE) 04/23/23 10:29 Amorphous Sediment 1+ /HPF (NEGATIVE) 04/23/23 10:29 Urine Bacteria Negative /HPF (NEGATIVE) 04/23/23 10:29 Ur Culture Indicated? No/not indicated 04/23/23 10:29 SARS-CoV-2 (PCR) Negative (NEGATIVE) 04/23/23 11:16 Influenza Type A (PCR) Negative (NEGATIVE) 04/23/23 11:16 Influenza Type B (PCR) Negative (NEGATIVE) 04/23/23 11:16 RSV (PCR) Negative (NEGATIVE) 04/23/23 11:16 Plan (1) Adult failure to thrive: Status: Acute Plan: Hospice/palliative care to evaluate. If not accepted, family will consider jail placement. We are stopping all medications at this time except for comfort medications. The family also has agreed to start IV fluid as well. We will be providing her with IV Valium, morphine sulfate and she will be started on Duragesic patch 25 mcg every 3 days. (2) Behavioral change: Status: Acute Plan: Continue Seroquel 25 mg at bedtime but stop Seroquel 25 mg p.o. every morning because of excessive grogginess. (3) Dehydration: Status: Acute Plan: Slow IV hydration to prevent fluid overload. (4) Muscle spasms of neck: Status: Acute Plan: Continue baclofen 5 mg p.o. 3 times daily. (5) Irritability and anger: Status: None Plan: Continue Seroquel 25 mg at at bedtime. (6) Hypomagnesemia: Status: Acute Plan: Magnesium oxide 400 mg p.o. twice daily. (7) Primary hypertension: Status: Acute Plan: The patient is currently receiving metoprolol tartrate 50 mg p.o. twice daily, olmesartan 10 mg p.o. daily. (8) Elevated blood pressure reading: Status: Chronic Plan: I will start the patient on p.o. metoprolol tartrate 25 mg p.o. twice daily since she is having somewhat elevated blood pressure and higher than normal heart rate. Reevaluate her blood pressure tomorrow morning.
[2023-05-02] MEDS: MORPHINE SULFATE INJ 2 MG INJ IVP PRN (22:26)
[2023-05-03 06:28] LABS: BASOPHILS # (AUTO) 0.2 X10^3/uL (0.0-0.1); BASOPHILS % (AUTO) 1.3 % (0.2-1.0); EOSINOPHILS % (AUTO) 0.4 % (0.9-2.9); HEMOGLOBIN 10.9 g/dL (12.0-16.0); LYMPHOCYTES # (AUTO) 2.5 X10^3/uL (1.3-2.9); MEAN CORPUSCULAR HEMOGLOBIN 27.1 pg (27.0-34.0); MEAN CORPUSCULAR HGB CONC 33.2 g/dL (33.0-35.0); MEAN CORPUSCULAR VOLUME 81.5 fL (80.0-100.0); MONOCYTES # (AUTO) 0.9 x10^3/uL (0.3-0.8); MONOCYTES % (AUTO) 7.4 % (0.0-13.0); NEUTROPHILS # (AUTO) 8.4 x10^3/uL (2.2-4.8); NEUTROPHILS % (AUTO) 69.9 % (42.0-75.0); PLATELET COUNT 247 X10^3/uL (150.0-450.0); RED BLOOD COUNT 4.04 X10^6/uL (3.5-5.4); RED CELL DISTRIBUTION WIDTH 15.7 % (11.6-16.5)
[2023-05-03 06:36] LABS: ALANINE AMINOTRANSFERASE 6 Units/L (12-78); ALBUMIN 2.8 g/dL (3.4-5.0); ALKALINE PHOSPHATASE 51 Units/L (46-116); ASPARTATE AMINO TRANSFERASE 13 Units/L (15-37); BLOOD UREA NITROGEN 18 mg/dL (7-18); CALCIUM 8.4 mg/dL (8.5-10.1); CARBON DIOXIDE 24.3 mmol/L (21-32); CHLORIDE 111 mmol/L (98-107); COR CA(FOR HYPOALB) 9.4 mg/dL (8.5-10.1); CREATININE 1.09 mg/dL (0.55-1.02); GLUCOSE 78 mg/dL (65-99); POTASSIUM 3.8 mmol/L (3.5-5.1); SODIUM 148 mmol/L (136-145); TOTAL PROTEIN 5.7 g/dL (6.4-8.2); eGFR NON BLACK RACES 50 (>60)
[2023-05-03] MEDS ORDERED: CONSULT PHARMACY - POTASSIUM & MAGNESIUM XX SCH (07:00)
[2023-05-03] MEDS ORDERED: K-DUR TAB 20 MEQ PO SCH (09:00)
[2023-05-03 12:06] VITALS: RESP 20
--- NOTE | 2023-05-03 13:43 | W.DIS.FURT ---
Summary of Discharge Discharge Summary of Date Date of Exam: 05/03/23 Admission Date Date of Admission: 04/23/23 Admission Diagnosis Hospital Course: Pt is an 87-year-old white female admitted for diffuse weakness, adult failure to thrive, dehydration. During hospital course, pt continued to gradually worsen with increased confusion as well as decreased responsiveness, remaining very lethargic with altered mental status. She continued to refuse anything, food, limited medicine intake. Discussions with family, hospice may be an appropriate option due to the deterioration of patient's status, family was in agreement. Pt discharged in stable condition for home hospice. Vital Signs: Vital Signs (72 hours) 04/30/23 16:00 04/30/23 19:00 04/30/23 20:00 Temperature 98.0 F 97.7 F Pulse Rate [Left Brachial] 86 74 Respiratory Rate 18 20 Blood Pressure [Left Arm] 130/85 131/75 O2 Sat by Pulse Oximetry 93 L 96 Oxygen Delivery Method Room Air Room Air Room Air 05/01/23 00:00 05/01/23 04:00 05/01/23 08:00 Temperature 97.9 F 98.0 F 97.8 F Pulse Rate [Left Brachial] 71 66 64 Respiratory Rate 18 18 18 Blood Pressure [Left Arm] 133/80 169/80 161/86 O2 Sat by Pulse Oximetry 97 96 96 Oxygen Delivery Method Room Air Room Air Room Air 05/01/23 09:50 05/01/23 07:00 05/01/23 12:00 Temperature 97.7 F Pulse Rate [Left Brachial] 60 Respiratory Rate 20 20 Blood Pressure [Left Arm] 157/71 O2 Sat by Pulse Oximetry 94 L Oxygen Delivery Method Room Air Room Air 05/01/23 16:00 05/01/23 19:58 05/01/23 19:00 Temperature 97 F L 98 F Pulse Rate [Left Brachial] 62 60 Respiratory Rate 20 20 Blood Pressure [Left Arm] 160/72 134/62 O2 Sat by Pulse Oximetry 93 L 96 Oxygen Delivery Method Room Air Room Air Room Air 05/02/23 00:00 05/02/23 04:00 05/02/23 07:00 Temperature 98.4 F 97.7 F Pulse Rate [Left Brachial] 60 71 Respiratory Rate 20 18 Blood Pressure [Left Arm] 138/63 108/78 O2 Sat by Pulse Oximetry 94 L 95 Oxygen Delivery Method Room Air Room Air Room Air 05/02/23 08:00 05/02/23 12:00 05/02/23 16:00 Temperature 99.2 F 99.3 F 98 F Pulse Rate [Left Brachial] 50 L 61 68 Respiratory Rate 20 18 18 Blood Pressure [Left Arm] 120/59 177/85 167/79 O2 Sat by Pulse Oximetry 96 93 L 95 Oxygen Delivery Method Room Air Room Air Room Air 05/02/23 22:26 05/02/23 19:00 05/02/23 22:56 Temperature Pulse Rate [Left Brachial] Respiratory Rate 20 20 Blood Pressure [Left Arm] O2 Sat by Pulse Oximetry Oxygen Delivery Method Room Air 05/02/23 20:00 05/03/23 00:00 05/03/23 04:00 Temperature 98.4 F 100.1 F H 99.1 F Pulse Rate [Left Brachial] 72 67 62 Respiratory Rate 20 20 20 Blood Pressure [Left Arm] 149/67 141/63 139/65 O2 Sat by Pulse Oximetry 97 94 L 94 L Oxygen Delivery Method Room Air Room Air Room Air 05/03/23 07:00 05/03/23 08:00 05/03/23 12:00 Temperature 98.4 F 98.9 F Pulse Rate [Left Brachial] 74 68 Respiratory Rate 18 20 Blood Pressure [Left Arm] 169/74 161/80 O2 Sat by Pulse Oximetry 94 L 94 L Oxygen Delivery Method Room Air Room Air Room Air Labs: Laboratory Last Values WBC 12.0 X10^3/uL (3.6-10.0) H 05/03/23 05:52 RBC 4.04 X10^6/uL (3.5-5.4) 05/03/23 05:52 Hgb 10.9 g/dL (12.0-16.0) L 05/03/23 05:52 Hct 33.0 % (36.0-47.0) L 05/03/23 05:52 MCV 81.5 fL (80.0-100.0) 05/03/23 05:52 MCH 27.1 pg (27.0-34.0) 05/03/23 05:52 MCHC 33.2 g/dL (33.0-35.0) 05/03/23 05:52 RDW 15.7 % (11.6-16.5) 05/03/23 05:52 Plt Count 247 X10^3/uL (150.0-450.0) 05/03/23 05:52 Plt Count Comment Adequate (ADEQUATE) 04/28/23 07:25 MPV 9.0 fL (7.4-11.0) 05/03/23 05:52 Neut % (Auto) 69.9 % (42.0-75.0) 05/03/23 05:52 Lymph % (Auto) 21.0 % (21.0-51.0) 05/03/23 05:52 [place] % (Auto) 7.4 % (0.0-13.0) 05/03/23 05:52 Eos % (Auto) 0.4 % (0.9-2.9) L 05/03/23 05:52 Baso % (Auto) 1.3 % (0.2-1.0) H 05/03/23 05:52 Neut # (Auto) 8.4 x10^3/uL (2.2-4.8) H 05/03/23 05:52 Lymph # (Auto) 2.5 X10^3/uL (1.3-2.9) 05/03/23 05:52 [place] # (Auto) 0.9 x10^3/uL (0.3-0.8) H 05/03/23 05:52 Eos # (Auto) 0.0 x10^3/uL (0.0-0.2) 05/03/23 05:52 Baso # (Auto) 0.2 X10^3/uL (0.0-0.1) H 05/03/23 05:52 Absolute Nucleated RBC 0.0 /100WBC 05/03/23 05:52 Total Counted 100 04/28/23 07:25 Neutrophils % (Manual) 77 % (39-76) H 04/28/23 07:25 Band Neutrophils % 1 % (0-10) 04/28/23 07:25 Lymphocytes % (Manual) 16 % (13-43) 04/28/23 07:25 Monocytes % (Manual) 4 % (4-9) 04/28/23 07:25 Eosinophils % (Manual) 2 % (0-6) 04/28/23 07:25 Plt Morphology Comment Normal (NORMAL) 04/28/23 07:25 RBC Morphology Normal (NORMAL) 04/28/23 07:25 Sodium 148 mmol/L (136-145) H 05/03/23 05:52 Corrected Sodium TNP 05/03/23 05:52 Potassium 3.8 mmol/L (3.5-5.1) 05/03/23 05:52 Chloride 111 mmol/L (98-107) H 05/03/23 05:52 Carbon Dioxide 24.3 mmol/L (21-32) 05/03/23 05:52 BUN 18 mg/dL (7-18) 05/03/23 05:52 Creatinine 1.09 mg/dL (0.55-1.02) H 05/03/23 05:52 Est GFR (MDRD) Af Amer > 60 (>60) 05/03/23 05:52 Est GFR (MDRD) Non-Af 50 (>60) L 05/03/23 05:52 Glucose 78 mg/dL (65-99) 05/03/23 05:52 POC Glucose (mg/dL) 82 mg/dL (65-99) 05/02/23 05:19 Calcium 8.4 mg/dL (8.5-10.1) L 05/03/23 05:52 Corrected Calcium 9.4 mg/dL (8.5-10.1) 05/03/23 05:52 Magnesium 2.0 mg/dL (2.0-2.9) 04/29/23 05:51 Total Bilirubin 0.50 mg/dL (0.2-1.0) 05/03/23 05:52 AST 13 Units/L (15-37) L 05/03/23 05:52 ALT 6 Units/L (12-78) L 05/03/23 05:52 Alkaline Phosphatase 51 Units/L (46-116) 05/03/23 05:52 Creatine Kinase 40 Units/L (26-192) 04/23/23 11:04 Troponin I High Sens 24.5 ng/L (4.0-60.0) 04/23/23 11:04 B-Natriuretic Peptide 124 pg/mL (0-79) H 04/23/23 11:04 Total Protein 5.7 g/dL (6.4-8.2) L 05/03/23 05:52 Albumin 2.8 g/dL (3.4-5.0) L 05/03/23 05:52 Globulin 2.9 g/dL (2.5-4.5) 05/03/23 05:52 Albumin/Globulin Ratio 1.0 Ratio (1.1-2.1) L 05/03/23 05:52 TSH 3rd Generation 1.480 uIU/mL (0.358-3.74) 04/26/23 05:35 TSH 3rd Generation Cancelled 04/26/23 05:35 Specimen Type Clean catch urine 04/23/23 10:29 Urine Color Yellow (YELLOW) 04/23/23 10:29 Urine Appearance Slightly hazy (CLEAR) 04/23/23 10:29 Urine pH 5.0 (5.0 - 8.0) 04/23/23 10:29 Ur Specific [place] 1.020 (1.000-1.030) 04/23/23 10:29 Urine Protein 1+ (NEGATIVE) 04/23/23 10:29 Urine Glucose (UA) Negative (NEGATIVE) 04/23/23 10:29 Urine Ketones 2+ (NEGATIVE) 04/23/23 10:29 Urine Blood Negative (NEGATIVE) 04/23/23 10:29 Urine Nitrite Negative (NEGATIVE) 04/23/23 10:29 Urine Bilirubin Negative (NEGATIVE) 04/23/23 10:29 Urine Urobilinogen Normal (NORMAL) 04/23/23 10:29 Ur Leukocyte Esterase 2+ (NEGATIVE) 04/23/23 10:29 Urine RBC None seen /HPF (0-3) 04/23/23 10:29 Urine WBC 3-5 /HPF (0-5) 04/23/23 10:29 Ur Squamous Epith Cells Many /HPF (NEGATIVE) 04/23/23 10:29 Amorphous Sediment 1+ /HPF (NEGATIVE) 04/23/23 10:29 Urine Bacteria Negative /HPF (NEGATIVE) 04/23/23 10:29 Ur Culture Indicated? No/not indicated 04/23/23 10:29 SARS-CoV-2 (PCR) Negative (NEGATIVE) 04/23/23 11:16 Influenza Type A (PCR) Negative (NEGATIVE) 04/23/23 11:16 Influenza Type B (PCR) Negative (NEGATIVE) 04/23/23 11:16 RSV (PCR) Negative (NEGATIVE) 04/23/23 11:16 Reason For Visit: ADULT FAILURE TO THRIVE, DEHYDRATION, WEAKNESS Discharge Date Discharge Date: 05/03/23 Discharge Diagnosis All Active Problems (Updated 04/27/23 @ 20:36 by SANTOS BENAVIDES) Muscle spasms of neck (Acute) Primary hypertension (Acute) Hypomagnesemia (Acute) Elevated blood pressure reading (Chronic) Behavioral change (Acute) Iatrogenic hypothyroidism (Acute) Adult failure to thrive (Acute) Dysuria (Acute) Dehydration (Acute) COVID-19 (Acute) Diverticulosis of large intestine without diverticulitis (Active) Hypothyroidism (Active) Essential hypertension (Active) Migraine without aura (Active) Diverticulitis of colon (Active) Diverticular disease (Active) Syncope (Acute) Altered mental status (Acute) TIA (transient ischemic attack) (Acute) Lacunar infarct, acute (Acute) Recurrent syncope (Acute) Hip pain, right (Acute) Acute pelvic pain (Acute) Fall (Acute) Fracture of wrist, closed (Acute) Acute exacerbation of chronic obstructive pulmonary disease (COPD) (Acute) Plan of Treatment: Continue with present treatment and follow up plan. Pt is to keep follow up appointment as instructed and take medications as ordered. Discharge Medications Discharge Medications: promethazine [From Phenergan] Allergy (Unknown, Verified 03/20/23 14:51) Discharge Disposition Discharge Disposition: Home Hospice Discharge Condition: Stable Discharge Plan Discharge Plan Hospital Course: Pt is an 87-year-old white female admitted for diffuse weakness, adult failure to thrive, dehydration. During hospital course, pt continued to gradually worsen with increased confusion as well as decreased responsiveness, remaining very lethargic with altered mental status. She continued to refuse anything, food, limited medicine intake. Discussions with family, hospice may be an appropriate option due to the deterioration of patient's status, family was in agreement. Pt discharged in stable condition for home hospice. Patient Disposition: 50 DISCHARGED TO HOSPICE -HOME Condition: Stable Health Concerns: Post Hospitalization: new medications and changes needed to prevent readmission or further decline. Pt educated and given instructions on all concerns. Care Plan Goals: Problem: Pain/Alteration in Comfort Goal: Improve/ Resolve Pain; Achieve Pain Tolerance Instructions: Take pain medications as prescribed. Contact your primary care provider if your pain is unrelieved or worsens. Follow up with primary care provider as directed. Plan of Treatment: Continue with present treatment and follow up plan. Pt is to keep follow up appointment as instructed and take medications as ordered. Prescriptions: Continued pantoprazole 40 mg tablet,delayed release (DR/EC) 40 mg PO QDAY Qty: 30 3RF hydroxyzine HCl 25 mg tablet 25 mg PO QID PRN (Reason: itching) 30 Days Qty: 120 3RF celecoxib 100 mg capsule 100 mg PO QDAY Qty: 30 3RF oxycodone 5 mg tablet 5 mg PO BID MDD 10 mg PRN (Reason: pain) 30 Days Qty: 60 0RF trazodone 100 mg tablet 100 mg PO QPM cetirizine 10 mg tablet 10 mg PO QDAY Qty: 90 3RF ciprofloxacin HCl 500 mg tablet 500 mg PO BID Qty: 20 0RF levothyroxine 125 mcg tablet 125 mcg PO QDAY megestrol 40 mg tablet 20 mg PO DAILY diazepam [Valium] 5 mg tablet 2.5 - 5 mg PO QDAY PRN (Reason: anxiety) Rx Instructions: 1/2 to 1 tablet daily as needed Follow ups/Referrals Follow ups/Referrals: [facility] [Other] SANTOS BENAVIDES [Primary Care Provider] - Instructions Instructions: and Dying, End-of-Life Care, Hospice, Malnutrition, Adult, [id number] Stand Alone Forms: Excuse From Work or School, Post Hospital Follow Up Care
[2023-05-03 17:19] VITALS: BP 178/75; PULSE 73; TEMP 98.1; O2SAT 95
== END 2023-05-03 17:00 | disposition hospice, home (50) | DRG 641 ==
LOC: U 09:58 → MED/SURG 09:58 → ER 09:58 → U 13:54 → MED/SURG 05-02 09:30
PROVIDERS: ADMIT Family Medicine; ATTEND Family Medicine